=== PATIENT | male | born 1935 | race Caucasian/White ===

== ENCOUNTER 2016-11-20 12:34 | Inpatient (IN) | payer MEDICARE, BC ==
[2016-11-20] VITALS (15 sets, daily range): BP systolic 132–226; BP diastolic 62–93; PULSE 54–72; RESP 16–18; TEMP 96.9–99; O2SAT 95–98
[~2016-11-20] VITALS: Ht 175.3 cm; Wt 98.2 kg
[~2016-11-20 12:34] MED LIST: AMOX250C PO; BO60R PR; DETR2CAP; LORT5TAB PO; LOSA25TA31 PO
[2016-11-20] MEDS ORDERED: SODIUM CHLOR 0.9% 1000 ML INJ 1,000 ML IV ONE (12:43)
[2016-11-20 12:51] LABS: I-STAT POTASSIUM 4.4 MMOL/L (3.5-4.9); I-STAT SODIUM 141 MMOL/L (138-146)
--- NOTE | 2016-11-20 12:53 | RADRPT ---
EXAM DATE/TIME: 11/20/2016 12:46 [facility] COMPARISON: No previous studies available for comparison. INDICATIONS : Stroke alert; Left sided weakness; left facial droop, slurred speech. RADIATION DOSE: 36.38 CTDIvol (mGy) This report was called by Dr. Watkins at 1248. MEDICAL HISTORY : Hypertension. SURGICAL HISTORY : Non-responsive. ENCOUNTER: Initial ACUITY: 1 day PAIN SCALE: 0/10 LOCATION: cranial TECHNIQUE: Multiple contiguous axial images were obtained of the head. Using automated exposure control and adj ustment of the mA and/or kV according to patient size, radiation dose was kept as low as reasonably a chievable to obtain optimal diagnostic quality images. DICOM format image data is available electro nically for review and comparison. FINDINGS: CEREBRUM: Moderate atrophy with small parafalcine subdural hematoma. There is no parenchymal hemorrhage. POSTERIOR FOSSA: The cerebellum and brainstem are intact. The 4th ventricle is midline. The cerebellopontine angle i s unremarkable. EXTRACRANIAL: The visualized portion of the orbits is intact. SKULL: The calvaria is intact. No evidence of skull fracture. CONCLUSION: Small parafalcine subdural hematoma without parenchymal hemorrhage. Germán Watkins MD FACR on November 20, 2016 at 12:49 Board Certified Radiologist. This report was verified electronically.
[2016-11-20 12:54] LABS: AUTOMATED NEUTROPHIL # 9.5 TH/MM3 (1.8-7.7); BASOPHIL # 0.1 TH/MM3 (0-0.2); BASOPHIL % 0.7 % (0.0-2.0); EOSINOPHIL # 0.3 TH/MM3 (0-0.4); EOSINOPHIL % 2.1 % (0.0-4.0); HEMATOCRIT 43.6 % (39.0-51.0); LYMPH % 22.8 % (9.0-44.0); LYMPHOCYTE # 3.2 TH/MM3 (1.0-4.8); MEAN CELL VOLUME 88.4 FL (80.0-100.0); MEAN CORPUSCULAR HEMOGLOBIN 29.2 PG (27.0-34.0); MONO % 7.3 % (0.0-8.0); NEUT % 67.1 % (16.0-70.0); PLATELET COUNT 405 TH/MM3 (150-450); RED BLOOD COUNT 4.93 MIL/MM3 (4.50-5.90); RED CELL DISTRIBUTION WIDTH 14.9 % (11.6-17.2); WHITE BLOOD COUNT 14.1 TH/MM3 (4.0-11.0)
[2016-11-20 12:55] LABS: HEMO FLAGS AUTO DIFF
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
[2016-11-20] MEDS ORDERED: IOHEXOL 350 MG/ML 10 ML VIAL (for RAD DIAG) IVCONTRAST ONE (13:00)
[2016-11-20 13:08] LABS: APTT (PATIENT) 25.2 SEC (24.3-30.1); INTERNATIONAL NORMALIZED RATIO 0.9 RATIO
[2016-11-20] MEDS ORDERED: niCARdipine INJ 25 MG in SODIUM CHLOR 0.9% 250 ML INJ 250 ML IV ONE (13:15)
--- NOTE | 2016-11-20 13:19 | RADRPT ---
EXAM DATE/TIME: 11/20/2016 13:07 [facility] COMPARISON: CHEST SINGLE AP, December 26, 2012, 9:21. INDICATIONS : Short of breath. MEDICAL HISTORY : Carcinoma, prostatic. SURGICAL HISTORY : None. ENCOUNTER: Initial ACUITY: 1 day PAIN SCORE: 0/10 LOCATION: Bilateral chest FINDINGS: A single view of the chest demonstrates the lungs to be symmetrically aerated without evidence of mas s, infiltrate or effusion. The cardiomediastinal contours are unremarkable. Osseous structures are intact. CONCLUSION: No acute disease. Germán Watkins MD FACR on November 20, 2016 at 13:17 Board Certified Radiologist. This report was verified electronically.
[2016-11-20 13:23] LABS: SCAN/DIFF AUTO DIFF CONFIRMED
[2016-11-20 13:25] LABS: CREATINE KINASE 62 U/L (39-308)
[2016-11-20] MEDS ORDERED: POTASSIUM PHOSPHATE MONOBASIC 500 MG TAB PO/TUBE PRN (13:30)
[2016-11-20] MEDS ORDERED: MAGNESIUM OXIDE 400 MG TAB PO PRN (13:30)
[2016-11-20] MEDS ORDERED: POTASSIUM CHLOR 20 MEQ PREMIX 100 ML IV PRN ×2 (13:30)
[2016-11-20] MEDS ORDERED: SODIUM PHOSPHATE INJ 30 MMOL in SODIUM CHLOR 0.9% 250 ML INJ 240 ML IV PRN (13:30)
[2016-11-20] MEDS ORDERED: MISCELLANEOUS NURSING INFORMATION XX SCH (13:30)
[2016-11-20] MEDS ORDERED: POTASSIUM CHLOR 40 MEQ PREMIX 100 ML IV PRN ×2 (13:30)
[2016-11-20] MEDS ORDERED: MAGNESIUM SULFATE INJ 4 GM in SODIUM CHLORIDE 0.9% INJ 92 ML IV PRN (13:30)
[2016-11-20] MEDS ORDERED: RESP: ALBUTEROL 2.5 MG/IPRATROPIUM 0.5 MG NEB (PRN) INH (13:30)
[2016-11-20] MEDS ORDERED: ONDANSETRON HCL 4 MG/2 ML VIAL IV PRN (13:30)
[2016-11-20] MEDS ORDERED: POTASSIUM PHOSPHATE MONOBASIC 500 MG TAB PO PRN (13:30)
[2016-11-20] MEDS ORDERED: CHLORHEXIDINE GLUCONATE 2 % 1 PACK (2 CLOTHS) TOP PRN (13:30)
[2016-11-20] MEDS ORDERED: DEXTROSE 50% IN WATER 50 ML VIAL(D50) IV PUSH PRN (13:30)
[2016-11-20] MEDS ORDERED: MAGNESIUM SULFATE INJ 2 GM in SODIUM CHLORIDE 0.9% INJ 96 ML IV PRN (13:30)
[2016-11-20] MEDS ORDERED: POTASSIUM PHOSPHATE INJ 30 MMOL in SODIUM CHLOR 0.9% 250 ML INJ 250 ML IV PRN (13:30)
--- NOTE | 2016-11-20 13:47 | RADRPT ---
EXAM DATE/TIME: 11/20/2016 13:23 [facility] COMPARISON: No previous studies available for comparison. INDICATIONS : Stroke alert, pt fell, left arm weakness, facial droop, slurred speech IV CONTRAST: 75 cc Omnipaque 350 (iohexol) IV ; Cumulative dose for multiple exams. RADIATION DOSE: 27.84 CTDIvol (mGy) ; Combined studies MEDICAL HISTORY : Cerebrovascular disease. Carcinoma, prostate. Radiation therapy SURGICAL HISTORY : None. ENCOUNTER: Initial ACUITY: 1 day PAIN SCALE: Non-responsive LOCATION: cranial TECHNIQUE: Volumetric scanning was performed using a multi-row detector CT scanner. The data was post processed with a variety of visualization algorithms including full volume maximum intensity projection, multi -planar sliding thin slab reformation, curved planar reformation, and surface rendering techniques. Using automated exposure control and adjustment of the mA and/or kV according to patient size, radiat ion dose was kept as low as reasonably achievable to obtain optimal diagnostic quality images. DICO M format image data is available electronically for review and comparison. FINDINGS: There is visualization of the A-1 segment on the left. Bascular artery is patent. There is no evidence for aneurysm or major branch vessel occlusion. CONCLUSION: Mild atherosclerotic vascular disease. Perfusion looks better on the right than the left. Germán Watkins MD FACR on November 20, 2016 at 13:43 Board Certified Radiologist. This report was verified electronically.
[2016-11-20 14:16] LABS: BLOOD, URINE MOD (NEG); GLUCOSE,URINE NEG (NEG); KETONE, URINE NEG (NEG); MUCUS URINE FEW /lpf (OCC); NITRITE,URINE NEG (NEG); PH, URINE 5.5 (5.0-8.5); SQUAMOUS EPITHELIAL CELL URINE <1 /hpf (0-5); URINE COLOR LIGHT-YELLOW (YELLW/STRAW)
--- NOTE | 2016-11-20 14:49 | RADRPT ---
EXAM DATE/TIME: 11/20/2016 13:23 [facility] COMPARISON: No previous studies available for comparison. INDICATIONS : Stroke alert, fall, left arm weakness, slurred speech, facial droop. IV CONTRAST: 75 cc Omnipaque 350 (iohexol) IV ; Cumulative dose for multiple exams. RADIATION DOSE: 27.84 CTDIvol (mGy) ; Combined studies MEDICAL HISTORY : Cerebrovascular disease. Carcinoma, prostate. Radiation therapy. SURGICAL HISTORY : None. ENCOUNTER: Initial ACUITY: 1 day PAIN SCALE: Non-responsive LOCATION: neck Elevated flow velocities and ICA/CCA ratios have been found to correlate with increased degrees of vessel stenosis, calculated as percentage of diameter relative to a normal segment of distal ICA/CCA. TECHNIQUE: Volumetric scanning was performed using a multirow detector CT scanner. The data was post processed with a variety of visualization algorithms including full-volume maximum intensity projection, multip lanar sliding thin-slab reformation, curved-planar reformation, and surface-rendering techniques. Us ing automated exposure control and adjustment of the mA and/or kV according to patient size, radiatio n dose was kept as low as reasonably achievable to obtain optimal diagnostic quality images. DICOM f ormat image data is available electronically for review and comparison. FINDINGS: AORTIC ARCH: There is a three-vessel origin of the great vessels from the aorta. No evidence of ostial narrowing. RIGHT CAROTID: The common carotid artery is intact. The carotid bulb has a normal configuration without ulceration o r narrowing. The internal carotid artery lumen is smooth without stenosis. The external carotid jaziel ry is intact. LEFT CAROTID: The common carotid artery is intact. The carotid bulb has a normal configuration without ulceration or narrowing. The internal carotid artery lumen is smooth without stenosis. The external carotid ar diane is intact. VERTEBRALS: Both vertebrals are small. CONCLUSION: Negative for carotid stenosis. Germán Watkins MD FACR on November 20, 2016 at 14:46 Board Certified Radiologist. This report was verified electronically.
--- NOTE | 2016-11-20 14:54 | HHI.HP ---
HPI Service Critical Care Medicine Primary Care Physician Bird Carlin M.D. Admission Diagnosis SUBDURAL HEMATOMA Diagnosis: Chief Complaint: syncope and headache Travel History International Travel<30 Days: No Contact w/Intl Traveler <30 Da: No Traveled to Known Affected Are: No History of Present Illness This is a 81yM with history of multiple prior CVAs and dementia, and on ASA and Plavix for his prior CVAs who presents after he syncopized and fell while [place] the [employer]. Due to his dementia, he is a poor historian, but his is with him. She reports that he has been in his usual state of health and suddenly passed out, fell out of his motorized wheelchair and hit the back of his head. He immediately regained consciousness, and she felt that he was weak on his left side with slurred speech, so he was brought emergently to the ER. In the ER, he did not have any apparent weakness. CT head demonstrated very small parafalcine subdural hematoma. The patient complains of headache only, denies any other associated symptoms. Review of Systems ROS Limitations: Clinical Condition, Poor Historian Constitutional: DENIES: Fever, Chills Respiratory: DENIES: Cough, Wheezing, Sputum production, Shortness of breath Cardiovascular: COMPLAINS OF: Syncope, DENIES: Chest pain, Palpitations, Dyspnea on Exertion, Lower Extremity Edema Gastrointestinal: DENIES: Abdominal pain, Constipation, Diarrhea, Nausea, Vomiting Genitourinary: DENIES: Urinary incontinence Neurologic: COMPLAINS OF: Headache, DENIES: Localized weakness, Seizures, Speech Problems ROS limited by his dementia. however, limited ROS negative unless otherwise noted. Past Family Social History Allergies: Coded Allergies: No Known Allergies (Verified , 12/26/12) Past Medical History Prostate cancer CVA in 2010 HTN Radiation therapy Past Surgical History Prostate surgery in 2006 Reported Medications Lortab 5/500 (Acetaminophen/Hydrocodone Bitart) 5 Mg/500 Mg Tab 1-2 Tab PO Q6HPRN FOR PAIN Amoxil (Amoxicillin) 250 Mg Cap 250 Mg PO TID 5 Days B & O 16-A Supprette (Belladonna Alkaloids/Opium) 60 Mg Sup 60 Mg ME Q6 PRN Detrol La (Tolterodine Tartrate) 2 Mg Cap Cozaar (Losartan Potassium) 25 Mg Tab 25 Mg PO DAILY ASA, unknown dose, daily Plavix 75mg po daily Active Ordered Medications See VERO Family History Reviewed and found to be noncontributory to his acute illness. Social History denied tob, etoh. Physical Exam Vital Signs Vital Signs Date Time Temp Pulse Resp B/P (MAP) Pulse Ox O2 Delivery O2 Flow Rate FiO2 11/20/16 14:36 61 18 132/62 (85) 98 Nasal Cannula 2.00 11/20/16 14:16 62 18 139/62 (87) 97 Room Air 11/20/16 13:57 68 18 145/66 (92) 97 Nasal Cannula 2.00 11/20/16 13:41 72 18 160/70 (100) 98 Nasal Cannula 2.00 11/20/16 13:26 69 18 97 Room Air 11/20/16 13:15 63 18 159/74 (102) 98 Nasal Cannula 2.00 11/20/16 13:10 64 188/83 11/20/16 13:04 68 18 188/83 (118) 98 Nasal Cannula 2.00 11/20/16 13:01 18 98 Nasal Cannula 2.00 11/20/16 13:01 97 Nasal Cannula 2.00 11/20/16 12:40 99.0 67 18 226/93 (137) 97 Nasal Cannula 2.00 Physical Exam gen: elderly male, lying in bed, distress due to headache heent: perrl. normocephalic. atraumatic. mucous membranes moist neck: no jvd. trachea midline chest: equal chest rise. nc o2 cv: normal rate, regular rhythm. sinus by tele abd: soft, nontender, nondistended, no guarding extr: no peripheral edema. 2+ distal pulses neuro: RASS 0. oriented x 3. at times has some word finding difficulties, but this is baseline per his . LEA 5/5 in all extremities. sensation grossly intact. CN II - 12 grossly intact. follows commands. Laboratory Laboratory Tests Test 11/20/16 12:39 11/20/16 13:40 White Blood Count 14.1 Red Blood Count 4.93 Hemoglobin 14.4 Bedside Hemoglobin 15.6 Hematocrit 43.6 Bedside Hematocrit 46.0 Mean Corpuscular Volume 88.4 Mean Corpuscular Hemoglobin 29.2 Mean Corpuscular Hemoglobin Concent 33.0 Red Cell Distribution Width 14.9 Platelet Count 405 Mean Platelet Volume 7.1 Neutrophils (%) (Auto) 67.1 Lymphocytes (%) (Auto) 22.8 Monocytes (%) (Auto) 7.3 Eosinophils (%) (Auto) 2.1 Basophils (%) (Auto) 0.7 Neutrophils # (Auto) 9.5 Lymphocytes # (Auto) 3.2 Monocytes # (Auto) 1.0 Eosinophils # (Auto) 0.3 Basophils # (Auto) 0.1 CBC Comment AUTO DIFF Differential Comment AUTO DIFF CONFIRMED Prothrombin Time 10.0 Prothromb Time International Ratio 0.9 Activated Partial Thromboplast Time 25.2 Fibrinogen 514 Bedside Sodium 141 Bedside Potassium 4.4 Bedside Chloride 106 Bedside Blood Urea Nitrogen 23 Bedside Creatinine 1.3 Bedside Glucose 94 Total Creatine Kinase 62 Troponin I LESS THAN 0.02 Urine Color LIGHT-YELLOW Urine Turbidity CLEAR Urine pH 5.5 Urine Specific [place] 1.022 Urine Protein NEG Urine Glucose (UA) NEG Urine Ketones NEG Urine Occult Blood MOD Urine Nitrite NEG Urine Bilirubin NEG Urine Urobilinogen LESS THAN 2.0 Urine Leukocyte Esterase MOD Urine RBC 41 Urine WBC 12 Urine Squamous Epithelial Cells <1 Urine Mucus FEW Urine Yeast (Budding) OCC Urine Opiates Screen NEG Urine Barbiturates Screen NEG Urine Amphetamines Screen NEG Urine Benzodiazepines Screen NEG Urine Cocaine Screen NEG Urine Cannabinoids Screen NEG Result Diagram: 11/20/16 1239 Imaging Last Impressions Head CTA 11/20/16 1243 Signed Impressions: Service Date/Time: Sunday, November 20, 2016 13:23 - CONCLUSION: Mild atherosclerotic vascular disease. Perfusion looks better on the right than the left. Germán Watkins MD FACR Head CT 11/20/16 0000 Signed Impressions: Service Date/Time: Sunday, November 20, 2016 12:46 - CONCLUSION: Small parafalcine subdural hematoma without parenchymal hemorrhage. Germán Watkins MD FACR Chest X-Ray 11/20/16 0000 Signed Impressions: Service Date/Time: Sunday, November 20, 2016 13:07 - CONCLUSION: No acute disease. Germán Watkins MD FACR Caprini VTE Risk Assessment Caprini VTE Risk Assessment: Mod/High Risk (score >= 2) VTE Pharm Contraindication: Intracranial lesions Caprini Risk Assessment Model Point Value = 1 Point Value = 2 Point Value = 3 Point Value = 5 Age 41-60 Minor surgery BMI > 25 kg/m2 Swollen legs Varicose veins or History of unexplained or recurrent spontaneous Oral contraceptives or hormone replacement Sepsis (< 1 month) Serious lung disease, including pneumonia (< 1 month) Abnormal pulmonary function Acute myocardial infarction Congestive heart failure (< 1 month) History of inflammatory bowel disease Medical patient at bed rest Age 61-74 Arthroscopic surgery Major open surgery (> 45 min) Laparoscopic surgery (> 45 min) Malignancy Confined to bed (> 72 hours) Immobilizing plaster cast Central venous access Age >= 75 History of VTE Family history of VTE Factor V Leiden Prothrombin 44691M Lupus anticoagulant Anticardiolipin antibodies Elevated serum homocysteine Heparin-induced thrombocytopenia Other congenital or acquired thrombophilia Stroke (< 1 month) Elective arthroplasty Hip, pelvis, or leg fracture Acute spinal cord injury (< 1 month) Prophylaxis Regimen Total Risk Factor Score Risk Level Prophylaxis Regimen 0-1 Low Early ambulation 2 Moderate Order ONE of the following: *Sequential Compression Device (SCD) *Heparin 5000 units SQ BID 3-4 Higher Order ONE of the following medications: *Heparin 5000 units SQ TID *Enoxaparin/Lovenox 40 mg SQ daily (WT < 150 kg, CrCl > 30 mL/min) *Enoxaparin/Lovenox 30 mg SQ daily (WT < 150 kg, CrCl > 10-29 mL/min) *Enoxaparin/Lovenox 30 mg SQ BID (WT < 150 kg, CrCl > 30 mL/min) AND/OR *Sequential Compression Device (SCD) 5 or more Highest Order ONE of the following medications: *Heparin 5000 units SQ TID (Preferred with Epidurals) *Enoxaparin/Lovenox 40 mg SQ daily (WT < 150 kg, CrCl > 30 mL/min) *Enoxaparin/Lovenox 30 mg SQ daily (WT < 150 kg, CrCl > 10-29 mL/min) *Enoxaparin/Lovenox 30 mg SQ BID (WT < 150 kg, CrCl > 30 mL/min) AND *Sequential Compression Device (SCD) Assessment and Plan Assessment and Plan Assessment: 81yM with history of multiple prior CVAs and dementia presents after syncopal episode with fall sustaining small Subdural hematoma. Admit to ICU for close observation and repeat head CT in AM. unlikely to benefit from platelet transfusion given small size of SDH and certainly risks associated with transfusion. will hold ASA and plavix given head bleed. Parafalcine Subdural Hematoma - frequent neuro checks - no anticoagulation - NS @ 84cc/hr - hold ASA, Plavix - neurosurgery consult: Dr. Stone - repeat CT head in AM Headache - tylenol prn Syncope - previously worked up per at [facility] - will keep on telemetry - repeat 2d echo Nursing bedside swallow eval and advance diet SCDs, pepcid. no pharmacologic dvt prophylaxis given head bleed Admit to ICU for close observation. Code Status After a full discussion with the patient and , they both elect to make the patient DNR, as both feel he would not want aggressive measures should he clinically decline. Discussed Condition With at bedside, ER physician, ER bedside RN. Bandar Tadeo MD Nov 20, 2016 14:54
[2016-11-20] MEDS: ACETAMINOPHEN 325 MG TAB PO PRN (15:17)
--- NOTE | 2016-11-20 17:35 | PD.CONS ---
History of Present Illness Service Neurosurgery Consult Requested By Tank Welder-Dr. Tadeo Reason for Consult Traumatic brain injury Primary Care Physician Bird Carlin M.D. Diagnoses: History of Present Illness 81-year-old male was reportedly walking at the [employer] with his daughter when the walker that he was using it a small rock and collapsed. The patient fell with at least brief loss of consciousness. No seizure activity reported. The patient's family states that he usually has problems with diminished speech and gait difficulty, but is somewhat less alert with decreased fluency of his speech compared to baseline. The patient does not complain of any nausea or vomiting. He does complain of a mild diffuse headache and diffuse neck pain which is new. No complaining of back pain. No complaint of pain and weakness or numbness in the extremities. The patient has had problems with ambulation for quite some time, and has fallen a few times in the past few weeks. He just completed a course of 6 weeks physical therapy as an outpatient. He does have problems with his knees, and underwent a knee injection per Dr. Ian Garg last week. The patient also has a history of prostate cancer, status post extensive radiation treatments with loss of bladder control. He self catheterizes. He underwent biopsy of a renal lesion last week, by , with pathology results pending. Review of Systems Constitutional: COMPLAINS OF: Fatigue, DENIES: Fever, Dizziness Eyes: DENIES: Blurred vision, Diplopia Ears, nose, mouth, throat: DENIES: Vertigo Respiratory: DENIES: Shortness of breath Cardiovascular: DENIES: Chest pain, Palpitations Gastrointestinal: COMPLAINS OF: Nausea, DENIES: Vomiting Genitourinary: COMPLAINS OF: Urinary incontinence Musculoskeletal: COMPLAINS OF: Joint pain, DENIES: Back pain, Neck pain Hematologic/lymphatic: DENIES: Bruising Neurologic: COMPLAINS OF: Abnormal gait, Headache, Localized weakness Psychiatric: DENIES: Confusion Past Family Social History Allergies: Coded Allergies: No Known Allergies (Verified , 12/26/12) Past Medical History Multiple CVAs/TIAs Prostate cancer Hypertension Recent diagnosis renal lesion-biopsy pathology pending Past Surgical History Apparent TURP Renal biopsy last week Knee injection last week Reported Medications He takes blood pressure medicine-questionable lisinopril Family History Mother with diabetes and cardiac disease, brother with COPD, another brother with cardiac disease Social History No cigarette use. No history of significant alcohol use Lives at home Physical Exam Vital Signs Vital Signs Date Time Temp Pulse Resp B/P (MAP) Pulse Ox O2 Delivery O2 Flow Rate FiO2 11/20/16 14:36 61 18 132/62 (85) 98 Nasal Cannula 2.00 11/20/16 14:16 62 18 139/62 (87) 97 Room Air 11/20/16 13:57 68 18 145/66 (92) 97 Nasal Cannula 2.00 11/20/16 13:41 72 18 160/70 (100) 98 Nasal Cannula 2.00 11/20/16 13:26 69 18 97 Room Air 11/20/16 13:15 63 18 159/74 (102) 98 Nasal Cannula 2.00 11/20/16 13:10 64 188/83 11/20/16 13:04 68 18 188/83 (118) 98 Nasal Cannula 2.00 11/20/16 13:01 18 98 Nasal Cannula 2.00 11/20/16 13:01 97 Nasal Cannula 2.00 11/20/16 12:40 99.0 67 18 226/93 (137) 97 Nasal Cannula 2.00 Physical Exam GENERAL: This is a well-nourished, well-developed patient, no apparent distress. SKIN: No abrasions, contusion, rash noted. Skin warm and dry. HEAD: Atraumatic. Normocephalic. No temporal or scalp tenderness. EYES: Sclerae are clear and nonicteric ENT: No facial edema or ecchymosis. No periorbital edema. No CSF otorrhea or rhinorrhea. No palpable facial fracture or deformity. NECK: Trachea midline. No cervical spine tenderness. CARDIOVASCULAR: Regular rate and rhythm without murmurs, gallops, or rubs. RESPIRATORY: Clear to auscultation. Breath sounds equal bilaterally. No wheezes , rales, or rhonchi. GASTROINTESTINAL: Abdomen soft, non-tender, nondistended. No hepato-splenomegaly , or palpable masses. No guarding. MUSCULOSKELETAL: Extremities without cyanosis, or edema. No joint tenderness, or edema noted. No calf tenderness. Dorsalis pedis pulses 2+ bilateral NEUROLOGICAL: Awake and alert He knows that he is in the hospital. Does not know the date Speech is moderately slowed but clear Says only a few words in response to questions. Follow simple commands well Answers questions appropriately Diminished judgment and insight Recent and remote memory significantly impaired No evidence of anxiety or depression Pupils are equal and reactive to accommodation. Extra-ocular movements, visual carbajal to confrontation, facial sensorimotor, tongue, palate, sternocleidomastoid testing, hearing to finger rub testing, and bilateral shoulder shrug are all intact. Sensation is intact to light touch in all extremities Strength normal major flexion and extension groups all extremities John's absent bilaterally No ankle clonus Plantar responses absent bilateral Fine motor movements intact upper extremities Laboratory Laboratory Tests Test 11/20/16 12:39 11/20/16 13:40 White Blood Count 14.1 Red Blood Count 4.93 Hemoglobin 14.4 Bedside Hemoglobin 15.6 Hematocrit 43.6 Bedside Hematocrit 46.0 Mean Corpuscular Volume 88.4 Mean Corpuscular Hemoglobin 29.2 Mean Corpuscular Hemoglobin Concent 33.0 Red Cell Distribution Width 14.9 Platelet Count 405 Mean Platelet Volume 7.1 Neutrophils (%) (Auto) 67.1 Lymphocytes (%) (Auto) 22.8 Monocytes (%) (Auto) 7.3 Eosinophils (%) (Auto) 2.1 Basophils (%) (Auto) 0.7 Neutrophils # (Auto) 9.5 Lymphocytes # (Auto) 3.2 Monocytes # (Auto) 1.0 Eosinophils # (Auto) 0.3 Basophils # (Auto) 0.1 CBC Comment AUTO DIFF Differential Comment AUTO DIFF CONFIRMED Prothrombin Time 10.0 Prothromb Time International Ratio 0.9 Activated Partial Thromboplast Time 25.2 Fibrinogen 514 Bedside Sodium 141 Bedside Potassium 4.4 Bedside Chloride 106 Bedside Blood Urea Nitrogen 23 Bedside Creatinine 1.3 Bedside Glucose 94 Total Creatine Kinase 62 Troponin I LESS THAN 0.02 Urine Color LIGHT-YELLOW Urine Turbidity CLEAR Urine pH 5.5 Urine Specific Hamilton 1.022 Urine Protein NEG Urine Glucose (UA) NEG Urine Ketones NEG Urine Occult Blood MOD Urine Nitrite NEG Urine Bilirubin NEG Urine Urobilinogen LESS THAN 2.0 Urine Leukocyte Esterase MOD Urine RBC 41 Urine WBC 12 Urine Squamous Epithelial Cells <1 Urine Mucus FEW Urine Yeast (Budding) OCC Urine Opiates Screen NEG Urine Barbiturates Screen NEG Urine Amphetamines Screen NEG Urine Benzodiazepines Screen NEG Urine Cocaine Screen NEG Urine Cannabinoids Screen NEG Result Diagram: 11/20/16 1239 Imaging 11/20/16 CT scan head images reviewed by the undersigned. Relatively thin para pulsing subdural hematoma without significant mass effect. No definite proximal hemorrhage or contusion. Neck CTA 11/20/16 1243 Signed Impressions: Service Date/Time: Sunday, November 20, 2016 13:23 - CONCLUSION: Negative for carotid stenosis. Germán Watkins MD FACR Head CTA 11/20/16 1243 Signed Impressions: Service Date/Time: Sunday, November 20, 2016 13:23 - CONCLUSION: Mild atherosclerotic vascular disease. Perfusion looks better on the right than the left. Germán Watkins MD FACR Head CT 11/20/16 0000 Signed Impressions: Service Date/Time: Sunday, November 20, 2016 12:46 - CONCLUSION: Small parafalcine subdural hematoma without parenchymal hemorrhage. Germán Watkins MD FACR Chest X-Ray 11/20/16 0000 Signed Impressions: Service Date/Time: Sunday, November 20, 2016 13:07 - CONCLUSION: No acute disease. Germán Watkins MD FACR Assessment and Plan Assessment and Plan Impression: 1. Traumatic brain injury. Possible syncopal episode but appears to have fallen due to uneven ground, possible malfunctioning of walker. However he has had some increased gait difficulty and falling in the past few weeks. Patient himself attributes this to his knee problems. 2. Hypertension Recommendations: Findings were discussed with the patient and his family. He will continue neurologic checks and vital signs in the intensive surgical care unit Follow-up CT scan head in the a.m. Continue physical therapy Non- chemical DVT prophylaxis Advance diet as tolerated Jay Stone MD Nov 20, 2016 17:35
--- NOTE | 2016-11-20 19:44 | MB ---
cc: SHIN ELIZABETH M.D. DATE OF 1935, 81 years old DATE OF CONSULTATION 11/20/2016 REASON FOR CONSULTATION Initially a stroke alert. HISTORY OF THE PRESENT ILLNESS Apparently the patient is an 81-year-old man who was walking at the [employer] with his daughter when he was using his walker, hit a rock because they were in the gravel portion and he fell and hit his head with a brief loss of consciousness. No seizure activity. Then when he regained consciousness he had some speech issues, gait problems and was brought in as a stroke alert. The patient seems to be back to baseline. However, his CT showed a small parafalcine subdural hematoma. The patient was on aspirin and Plavix. He has had a few TIAs and strokes per his with also a history of bladder, prostate cancer with radiation. He recently had a renal biopsy, results are pending. ALLERGIES None reported. HISTORY 1. Multiple strokes, TIAs. 2. Prostate cancer. 3. Hypertension. 4. Renal biopsy, pathology pending. PAST SURGICAL HISTORY 1. Transurethral resection of prostate. 2. Renal biopsy last week. 3. Knee injection last week. FAMILY HISTORY Diabetes, heart disease, COPD. SOCIAL HISTORY Lives at home with his . PHYSICAL EXAMINATION VITAL SIGNS: On exam his vitals, heart rate 61, respiratory rate 18, blood pressure 132/62, sating at 98% on room air. NEUROLOGIC: He is awake and alert. He knows his , his age, his , he nearly guessed his anniversary correctly. He knows it is November. He thought it was later then the . He was 2016. Speech is otherwise fluent. Pupils reactive. Motor khan he may have minimal weakness in the left hand commercial counsel but no drift, no leg lag. No clonus. Toes are neutral. Cerebellar is intact. Gait is withheld. LABORATORY DATA White count 14.1. Chemistries unremarkable. Coag panel fibrinogen 514. Urine shows moderate leukocyte esterase. UDS is negative. IMAGING STUDIES As stated head CTA shows mild atherosclerotic disease, perfusion looks better on the right than on the left. Neck CTA negative for carotid disease. Head CT shows the small parafalcine subdural hematoma without any apparent parenchymal hemorrhage. IMPRESSION An 81-year-old man with a traumatic brain injury from a fall with a small parafalcine subdural hematoma. RECOMMENDATIONS Straight blood pressure control. Keep him off of his aspirin and Plavix. We will follow up a CT in the morning as per Dr. Stone's recommendations. SCDs for DVT prophylaxis. Diet advance as tolerated. Physical therapy and if stable hopefully discharge in the next 24-48 hours depending on course. MD SAMSON Martínez/LIANE /5:42 PM /7:22 PM
[2016-11-20] MEDS: FAMOTIDINE 20 MG TAB PO SCH (20:54)
[2016-11-20] MEDS: DOCUSATE SODIUM 50 MG/SENNA 8.6 MG TAB PO SCH (20:55)
[2016-11-20] MEDS: INSULIN NovoLIN REGULAR SUPPLEMENTAL SCALE SQ SCH (21:00)
[2016-11-20] MEDS: hydrALAZINE HCL 20 MG/ML VIAL IV PUSH PRN (21:09)
[2016-11-20] MEDS: SODIUM CHLOR 0.9% 1000 ML INJ 1,000 ML IV SCH (21:09)
[2016-11-20] MEDS ORDERED: amLODIPine BESYLATE 5 MG TAB PO ONE (22:15)
[2016-11-21] VITALS (13 sets, daily range): BP systolic 130–165; BP diastolic 60–89; PULSE 56–75; RESP 12–18; TEMP 97.8–98.6; O2SAT 94–96
[2016-11-21] MEDS: hydrALAZINE HCL 20 MG/ML VIAL IV PUSH PRN ×3 (01:15→09:18)
[2016-11-21] MEDS: INSULIN NovoLIN REGULAR SUPPLEMENTAL SCALE SQ SCH ×5 (02:03→21:00)
[2016-11-21] MEDS: LABETALOL HCL 100 MG/20 ML VIAL IV PUSH PRN ×5 (03:43→09:50)
[2016-11-21] MEDS: CHLORHEXIDINE GLUCONATE 2 % 1 PACK (2 CLOTHS) TOP SCH (03:52)
[2016-11-21 07:13] LABS: MEAN CELL VOLUME 89.4 FL (80.0-100.0); MEAN CORPUSCULAR HEMOGLOBIN 28.6 PG (27.0-34.0); PLATELET COUNT 351 TH/MM3 (150-450); REVIEW FLAG FINAL; WHITE BLOOD COUNT 14.9 TH/MM3 (4.0-11.0)
[2016-11-21 07:38] LABS: BICARBONATE 21.2 MEQ/L (21.0-32.0)
[2016-11-21 07:39] LABS: POTASSIUM 4.1 MEQ/L (3.5-5.1)
[2016-11-21] MEDS: SODIUM CHLOR 0.9% 1000 ML INJ 1,000 ML IV SCH ×2 (08:00→13:19)
[2016-11-21] MEDS: ACETAMINOPHEN 325 MG TAB PO PRN (08:44)
[2016-11-21] MEDS: DOCUSATE SODIUM 50 MG/SENNA 8.6 MG TAB PO SCH ×2 (08:44→21:00)
[2016-11-21] MEDS: FAMOTIDINE 20 MG TAB PO SCH ×2 (08:45→21:42)
[2016-11-21] MEDS ORDERED: amLODIPine BESYLATE 5 MG TAB PO SCH (09:00)
--- NOTE | 2016-11-21 09:29 | HHI.CCPN ---
Subjective Remarks/Hospital Course This is a 81yM with history of multiple prior CVAs and dementia, and on ASA and Plavix for his prior CVAs who presents after he syncopized and fell while at the [employer]. Due to his dementia, he is a poor historian, but his is with him. She reports that he has been in his usual state of health and suddenly passed out, fell out of his motorized wheelchair and hit the back of his head. He immediately regained consciousness, and she felt that he was weak on his left side with slurred speech, so he was brought emergently to the ER. In the ER, he did not have any apparent weakness. CT head demonstrated very small parafalcine subdural hematoma. The patient complains of headache only, denies any other associated symptoms. 11/21: Alert, cooperative today. CTA head and neck benign - no stenosis or aneurysm. Looks like simple SDH after fall. Objective Vital Signs Date Time Temp Pulse Resp B/P (MAP) Pulse Ox O2 Delivery O2 Flow Rate FiO2 11/21/16 06:00 63 11/21/16 04:00 97.9 14 149/66 (93) 94 11/20/16 14:36 Nasal Cannula 2.00 Intake and Output 11/21/16 11/21/16 11/22/16 08:00 16:00 00:00 Intake Total 843 ml Output Total 2000 ml Balance -1157 ml Result Diagram: 11/21/16 0555 11/21/16 0555 Imaging Last Impressions Head CTA 11/20/16 1243 Signed Impressions: Service Date/Time: Sunday, November 20, 2016 13:23 - CONCLUSION: Mild atherosclerotic vascular disease. Perfusion looks better on the right than the left. Germán Watkins MD FACR Head CT 11/20/16 0000 Signed Impressions: Service Date/Time: Sunday, November 20, 2016 12:46 - CONCLUSION: Small parafalcine subdural hematoma without parenchymal hemorrhage. Germán Watkins MD FACR Chest X-Ray 11/20/16 0000 Signed Impressions: Service Date/Time: Sunday, November 20, 2016 13:07 - CONCLUSION: No acute disease. Germán Watkins MD FACR Objective Remarks gen: elderly male, lying in bed, no distress heent: perrl. normocephalic. atraumatic. mucous membranes moist neck: no jvd. trachea midline. unobstructed chest: equal chest rise. nc o2. clear. cv: normal rate, regular rhythm. sinus by tele abd: soft, nontender, nondistended, no guarding extr: no peripheral edema. 2+ distal pulses neuro: RASS 0. oriented x 3. at times has some word finding difficulties, but this is baseline per his . LEA 5/5 in all extremities. sensation grossly intact. CN II - 12 grossly intact. follows commands. cooperative. A/P Assessment and Plan Assessment: 81yM with history of multiple prior CVAs and dementia presents after syncopal episode with fall sustaining small Subdural hematoma. Admit to ICU for close observation and repeat head CT in AM. unlikely to benefit from platelet transfusion given small size of SDH and certainly risks associated with transfusion. will hold ASA and plavix given head bleed. Parafalcine Subdural Hematoma - frequent neuro checks - no anticoagulation - NS @ 84cc/hr - hold ASA, Plavix - neurosurgery consult: Dr. Stone - repeat CT head in AM Headache - tylenol prn Syncope - previously worked up at [facility] - will keep on telemetry - repeat 2d echo Nursing bedside swallow eval and advance diet SCDs, pepcid. no pharmacologic dvt prophylaxis given head bleed Admit to ICU for close observation. If repeat CT no change, transfer to floor. Lit Cotton MD Nov 21, 2016 09:29
--- NOTE | 2016-11-21 11:57 | HHI.NSPN ---
(Corry Sims) Note Status Status: Progress Note (Corry Sims) Interval History Interval History 81-year-old male was reportedly walking at the [employer] with his daughter when the walker that he was using it a small rock and collapsed. The patient fell with at least brief loss of consciousness. No seizure activity reported. The patient's family states that he usually has problems with diminished speech and gait difficulty, but is somewhat less alert with decreased fluency of his speech compared to baseline. The patient does not complain of any nausea or vomiting. He does complain of a mild diffuse headache and diffuse neck pain which is new. No complaining of back pain. No complaint of pain and weakness or numbness in the extremities. The patient has had problems with ambulation for quite some time, and has fallen a few times in the past few weeks. He just completed a course of 6 weeks physical therapy as an outpatient. He does have problems with his knees, and underwent a knee injection per Dr. Ian Garg last week. The patient also has a history of prostate cancer, status post extensive radiation treatments with loss of bladder control. He self catheterizes. He underwent biopsy of a renal lesion last week, by , with pathology results pending. 11/21: c/o mild headaches, otherwise reports to be feeling better. denies focal weakness, nausea, vomiting or seizures. f/u CT Head today pending. (Corry Sims) Interval History 11/[address] As above[address] Follow up CT of the brain today (Elvis Cox MD) Labs, Micro, & Vital Signs Results Date Time Temp Pulse Resp B/P (MAP) Pulse Ox O2 Delivery O2 Flow Rate FiO2 11/21/16 10:00 65 11/21/16 08:00 98.4 58 15 153/89 (110) 96 11/21/16 08:00 95 11/21/16 08:00 58 11/21/16 07:00 96 Room Air 11/21/16 06:00 63 11/21/16 04:00 62 11/21/16 04:00 97.9 62 14 149/66 (93) 94 11/21/16 02:00 75 11/21/16 00:00 63 11/21/16 00:00 98.6 56 18 148/67 (94) 95 11/20/16 22:00 56 11/20/16 20:57 97 11/20/16 20:46 96 11/20/16 20:00 98.3 56 16 143/64 (90) 95 11/20/16 20:00 54 11/20/16 18:00 97.5 54 16 143/67 (92) 96 11/20/16 16:00 96.9 61 16 151/69 (96) 11/20/16 15:15 64 11/20/16 14:36 61 18 132/62 (85) 98 Nasal Cannula 2.00 11/20/16 14:16 62 18 139/62 (87) 97 Room Air 11/20/16 13:57 68 18 145/66 (92) 97 Nasal Cannula 2.00 11/20/16 13:41 72 18 160/70 (100) 98 Nasal Cannula 2.00 11/20/16 13:26 69 18 97 Room Air 11/20/16 13:15 63 18 159/74 (102) 98 Nasal Cannula 2.00 11/20/16 13:10 64 188/83 11/20/16 13:04 68 18 188/83 (118) 98 Nasal Cannula 2.00 11/20/16 13:01 18 98 Nasal Cannula 2.00 11/20/16 13:01 97 Nasal Cannula 2.00 11/20/16 12:40 99.0 67 18 226/93 (137) 97 Nasal Cannula 2.00 Constitutional Vital Signs Date Time Temp Pulse Resp B/P (MAP) Pulse Ox O2 Delivery O2 Flow Rate FiO2 11/21/16 10:00 65 11/21/16 08:00 98.4 58 15 153/89 (110) 96 11/21/16 08:00 95 11/21/16 08:00 58 11/21/16 07:00 96 Room Air 11/21/16 06:00 63 11/21/16 04:00 62 11/21/16 04:00 97.9 62 14 149/66 (93) 94 11/21/16 02:00 75 11/21/16 00:00 63 11/21/16 00:00 98.6 56 18 148/67 (94) 95 11/20/16 22:00 56 11/20/16 20:57 97 11/20/16 20:46 96 11/20/16 20:00 98.3 56 16 143/64 (90) 95 11/20/16 20:00 54 11/20/16 18:00 97.5 54 16 143/67 (92) 96 11/20/16 16:00 96.9 61 16 151/69 (96) 11/20/16 15:15 64 11/20/16 14:36 61 18 132/62 (85) 98 Nasal Cannula 2.00 11/20/16 14:16 62 18 139/62 (87) 97 Room Air 11/20/16 13:57 68 18 145/66 (92) 97 Nasal Cannula 2.00 11/20/16 13:41 72 18 160/70 (100) 98 Nasal Cannula 2.00 11/20/16 13:26 69 18 97 Room Air 11/20/16 13:15 63 18 159/74 (102) 98 Nasal Cannula 2.00 11/20/16 13:10 64 188/83 11/20/16 13:04 68 18 188/83 (118) 98 Nasal Cannula 2.00 11/20/16 13:01 18 98 Nasal Cannula 2.00 11/20/16 13:01 97 Nasal Cannula 2.00 11/20/16 12:40 99.0 67 18 226/93 (137) 97 Nasal Cannula 2.00 (Corry Sims) Review of Systems Constitutional: DENIES: Fever Eyes: DENIES: Diplopia Cardiovascular: DENIES: Chest pain Neurologic: COMPLAINS OF: Headache (mild), DENIES: Localized weakness (Corry Sims) Physical Exam Alert, oriented to name, place, and year. Follows commands well. Speech is fluent. CN: pupils 4 mm b/l. facial motor symmetric. Tongue midline. EOMs intact. Neck: soft, supple Motor: 5/5 to both upper and lower extremities Sensory: intact to light touch x 4 Cerebellar: intact finger to nose b/l Plantars flexors b/l Extremities: no edema or erythema (Corry Sims) Mr Bowie is alert, awake and oriented to time, place and person. Speech is fluent. Cranial nerve examination: pupils to be equal, round and reactive to light. Extra-ocular movements are intact. Facial motor and sensory function are normal and symmetrical. Gross hearing appears intact. Sternocleidomastoid and trapezius muscles are symmetrical. Other cranial nerves are intact. Neck is soft and supple with a good range of motion without pain. Muscle strength is normal in all muscle groups of both upper and lower extremities. Sensory examination is intact to light touch and pin prick in both the upper and lower extremities. Deep tendon reflexes are symmetrical in both upper and lower extremities. There is a bilateral plantar flexion response. Cerebellar examination is unremarkable, without deficits. (Elvis Cox MD) Medications Current Medications Current Medications Medications (Trade) Dose Ordered Sig/Keith Route PRN Reason Start Time Stop Time Status Last Admin Dose Admin Magnesium Oxide (Mag-Ox) 800 mg UNSCH PRN PO For Magnesium 1.2 - 1.6 mg/dL 11/20/16 13:30 Magnesium Sulfate 4 gm/Sodium Chloride 100 ml @ 50 mls/hr UNSCH PRN IV For Magnesium 0.9 - 1.1 mg/dL 11/20/16 13:30 Magnesium Sulfate 2 gm/Sodium Chloride 100 ml @ 50 mls/hr UNSCH PRN IV For Magnesium 1.2 - 1.6 mg/dL 11/20/16 13:30 Potassium Chloride 100 ml @ 50 mls/hr Q2H PRN IV For Potassium 2.8 - 3.2 mEq/L 11/20/16 13:30 Potassium Chloride 100 ml @ 50 mls/hr Q2H PRN IV For Potassium 3.3 - 3.5 mEq/L 11/20/16 13:30 Potassium Chloride 100 ml @ 50 mls/hr Q2H PRN IV For Potassium 2.8 - 3.2 mEq/L 11/20/16 13:30 Potassium Chloride 100 ml @ 25 mls/hr UNSCH PRN IV For Potassium 3.3 - 3.5 mEq/L 11/20/16 13:30 Potassium Phosphate (K-Phos) 2,000 mg Q4H PRN PO For Phosphorus < 2.5 mg/dL 11/20/16 13:30 Potassium Phosphate (K-Phos) 2,000 mg UNSCH PRN PO/TUBE SEE LABEL COMMENTS 11/20/16 13:30 Potassium Phosphate 30 mmol/ Sodium Chloride 260 ml @ 42 mls/hr UNSCH PRN IV SEE LABEL COMMENTS 11/20/16 13:30 Sodium Phosphate 30 mmol/Sodium Chloride 250 ml @ 42 mls/hr UNSCH PRN IV For Phosphorus < 2.5 mg/dL 11/20/16 13:30 Dextrose (D50w (Vial) Inj) 25 ml UNSCH PRN IV PUSH HYPOGLYCEMIA-SEE COMMENTS 11/20/16 13:30 Insulin Human Regular (NovoLIN R SUPPLEMENTAL SCALE) 1 ACHS AND 3AM SQ 11/20/16 16:00 Sodium Chloride 1,000 ml @ 84 mls/hr [id number] IV 11/20/16 13:29 11/21/16 08:00 Famotidine (Pepcid) 20 mg Q12HR PO 11/20/16 21:00 11/21/16 08:45 Ondansetron HCl (Zofran Inj) 4 mg Q6H PRN IV NAUSEA OR VOMITING 11/20/16 13:30 Albuterol/ Ipratropium (Duoneb Neb) 1 ampule Q2HR NEB PRN INH WHEEZING 11/20/16 13:30 Miscellaneous Information 1 Q361D XX 11/20/16 13:30 Chlorhexidine Gluconate (Chlorhexidine 2% Cloth) 3 pack Taper DAILY@04 TOP 11/21/16 04:00 11/17/17 03:59 11/21/16 03:52 Chlorhexidine Gluconate (Chlorhexidine 2% Cloth) 3 pack UNSCH PRN TOP HYGIENIC CARE 11/20/16 13:30 Senna/Docusate Sodium (Grace-Colace) 1 tab BID PO 11/20/16 21:00 11/21/16 08:44 Acetaminophen (Tylenol) 650 mg Q4H PRN PO pain 1-10 or fever 11/20/16 15:00 11/21/16 08:44 Hydralazine HCl (Apresoline Inj) 10 mg Q4H PRN IV PUSH SBP >140 11/20/16 20:45 11/21/16 09:18 Labetalol HCl (Trandate Inj) 10 mg Q6H PRN IV PUSH SBP >140 11/21/16 03:45 11/21/16 09:50 Amlodipine Besylate (Norvasc) 5 mg DAILY PO 11/21/16 09:00 11/21/16 08:45 (Corry Sims) Current Medications Current Medications Sodium Chloride 1,000 ml @ 70 mls/hr [id number] ONCE IV ; Start 11/20/16 at 12:43; Stop 11/20/16 at 13:52; Status DC Nicardipine HCl 25 mg/Sodium Chloride 260 ml @ 0 mls/hr TITRATE ONCE IV Last administered on 11/20/16t 13:10; Start 11/20/16 at 13:15; Stop 11/20/16 at 13:16; Status DC Magnesium Oxide (Mag-Ox) 800 mg UNSCH PRN PO For Magnesium 1.2 - 1.6 mg/dL; Start 11/20/16 at 13:30 Magnesium Sulfate 4 gm/Sodium Chloride 100 ml @ 50 mls/hr UNSCH PRN IV For Magnesium 0.9 - 1.1 mg/dL; Start 11/20/16 at 13:30 Magnesium Sulfate 2 gm/Sodium Chloride 100 ml @ 50 mls/hr UNSCH PRN IV For Magnesium 1.2 - 1.6 mg/dL; Start 11/20/16 at 13:30 Potassium Chloride 100 ml @ 50 mls/hr Q2H PRN IV For Potassium 2.8 - 3.2 mEq/L ; Start 11/20/16 at 13:30 Potassium Chloride 100 ml @ 50 mls/hr Q2H PRN IV For Potassium 3.3 - 3.5 mEq/L ; Start 11/20/16 at 13:30 Potassium Chloride 100 ml @ 50 mls/hr Q2H PRN IV For Potassium 2.8 - 3.2 mEq/L ; Start 11/20/16 at 13:30 Potassium Chloride 100 ml @ 25 mls/hr UNSCH PRN IV For Potassium 3.3 - 3.5 mEq /L; Start 11/20/16 at 13:30 Potassium Phosphate (K-Phos) 2,000 mg Q4H PRN PO For Phosphorus < 2.5 mg/dL; Start 11/20/16 at 13:30 Potassium Phosphate (K-Phos) 2,000 mg UNSCH PRN PO/TUBE SEE LABEL COMMENTS; Start 11/20/16 at 13:30 Potassium Phosphate 30 mmol/ Sodium Chloride 260 ml @ 42 mls/hr UNSCH PRN IV SEE LABEL COMMENTS; Start 11/20/16 at 13:30 Sodium Phosphate 30 mmol/Sodium Chloride 250 ml @ 42 mls/hr UNSCH PRN IV For Phosphorus < 2.5 mg/dL; Start 11/20/16 at 13:30 Dextrose (D50w (Vial) Inj) 25 ml UNSCH PRN IV PUSH HYPOGLYCEMIA-SEE COMMENTS; Start 11/20/16 at 13:30 Insulin Human Regular (NovoLIN R SUPPLEMENTAL SCALE) 1 ACHS AND 3AM SQ ; Start 11/20/16 at 16:00 Sodium Chloride 1,000 ml @ 84 mls/hr [id number] IV Last administered on 11/21/16 08:00; Start 11/20/16 at 13:29 Famotidine (Pepcid) 20 mg Q12HR PO Last administered on 11/21/16 08:45; Start 11/20/16 at 21:00 Ondansetron HCl (Zofran Inj) 4 mg Q6H PRN IV NAUSEA OR VOMITING; Start 11/20/16 at 13:30 Albuterol/ Ipratropium (Duoneb Neb) 1 ampule Q2HR NEB PRN INH WHEEZING; Start 11/20/16 at 13:30 Miscellaneous Information 1 Q361D XX ; Start 11/20/16 at 13:30 Chlorhexidine Gluconate (Chlorhexidine 2% Cloth) 3 pack Taper DAILY@04 TOP Last administered on 11/21/16 03:52; Start 11/21/16 at 04:00; Stop 11/17/17 at 03 :59 Chlorhexidine Gluconate (Chlorhexidine 2% Cloth) 3 pack UNSCH PRN TOP HYGIENIC CARE; Start 11/20/16 at 13:30 Senna/Docusate Sodium (Grace-Colace) 1 tab BID PO Last administered on 11/21/16 08:44; Start 11/20/16 at 21:00 Iohexol (Omnipaque 350 Inj) 75 ml STK-MED ONCE IVCONTRAST Last administered on 11/20/16 13:00; Start 11/20/16 at 13:00; Stop 11/20/16 at 13:41; Status DC Acetaminophen (Tylenol) 650 mg Q4H PRN PO pain 1-10 or fever Last administered on 11/21/16 08:44; Start 11/20/16 at 15:00 Hydralazine HCl (Apresoline Inj) 10 mg Q4H PRN IV PUSH SBP >140 Last administered on 11/21/16 09:18; Start 11/20/16 at 20:45 Amlodipine Besylate (Norvasc) 5 mg ONCE ONCE PO Last administered on 11/20/16 22:15; Start 11/20/16 at 22:15; Stop 11/20/16 at 22:16; Status DC Labetalol HCl (Trandate Inj) 10 mg Q6H PRN IV PUSH SBP >140 Last administered on 11/21/16 09:50; Start 11/21/16 at 03:45 Amlodipine Besylate (Norvasc) 5 mg DAILY PO Last administered on 11/21/16 08:45 ; Start 11/21/16 at 09:00 (Elvis Cox MD) Medical Decision Making MDM Remarks 81 y/o male 1. Traumatic brain injury. Possible syncopal episode but appears to have fallen due to uneven ground, possible malfunctioning of walker. CT Head on arrival with small parafalcine subdural hematoma. 2. Hypertension (Corry Sims) Plan Plan Remarks cont neuro checks in ISC f/u CT Head pending today, cont nonchemical dvt prophylaxis in view of acute ICH cont oral diet, advance as tolerated cont PT (Corry Sims) Attending Statement Continue neuro checks. parafalcine SDH. I reviewed his follow up CT of the brain today Syncope he has been previously worked up at [facility] keep on telemetry. Will repeat 2d echo Unable to give anticoagulation Pulmonary.. Continue aggressive pulmonary toilette, nasotracheal suction, and breathing treatments with nebulizers. Renal. monitor closely urine output, BUN and creatinine Endocrine. Monitor serial Acu checks and SSI as needed in detail ID monitor for signs of infection Protonix for stress ulcer prophylaxis Rashad hose and SCD's for DVT prophylaxis. The exam, history, and the medical decision-making described in the above note were completed with the assistance of the mid-level provider. I reviewed and agree with the findings presented. I attest that I had a [id number] encounter with the patient on the same day, and personally performed and documented my assessment and findings in the medical record. Discussedm with Dr Cotton (Elvis Cox MD) Corry Sims Nov 21, 2016 11:57 Elvis Cox MD Nov 21, 2016 13:18
--- NOTE | 2016-11-21 14:57 | RADRPT ---
EXAM DATE/TIME: 11/21/2016 14:38 [facility] COMPARISON: CT BRAIN W/O CONTRAST, November 20, 2016, 12:46. INDICATIONS : Follow up intracranial hemorrhage. RADIATION DOSE: 56.35 CTDIvol (mGy) MEDICAL HISTORY : Cerebrovascular disease. SURGICAL HISTORY : None. ENCOUNTER: Subsequent ACUITY: 3 days PAIN SCALE: 0/10 LOCATION: cranial TECHNIQUE: Multiple contiguous axial images were obtained of the head. Using automated exposure control and adj ustment of the mA and/or kV according to patient size, radiation dose was kept as low as reasonably a chievable to obtain optimal diagnostic quality images. DICOM format image data is available electro nically for review and comparison. FINDINGS: CEREBRUM: Parafalcine subdural remains stable in interval. There is mild central and cortical atrophy. POSTERIOR FOSSA: The cerebellum and brainstem are intact. The 4th ventricle is midline. The cerebellopontine angle i s unremarkable. EXTRACRANIAL: Minimal right maxillary sinus disease. SKULL: The calvaria is intact. No evidence of skull fracture. CONCLUSION: Stable noncontrast axial head CT small parafalcine subdural hematoma. Germán Watkins MD FACR on November 21, 2016 at 14:55 Board Certified Radiologist. This report was verified electronically.
[2016-11-21] MEDS: LISINOPRIL 5 MG TAB PO SCH (16:41)
--- NOTE | 2016-11-21 20:18 | EKG ---
Date Performed: 11/20/2016 Time Performed: 12:56:45 PTAGE: 81 years EKG: Sinus rhythm WITH FIRST DEGREE AV BLOCK MARKED LEFT AXIS DEVIATION ABNORMAL ECG PREVIOUS TRACING : 12/26/2012 22.39 DOCTOR: Jessica Schwab Interpretating Date/Time 11/21/2016 20:15:45
[2016-11-22] VITALS (12 sets, daily range): BP systolic 124–153; BP diastolic 63–73; PULSE 51–65; RESP 14–20; TEMP 98–99; O2SAT 94–95
[2016-11-22] MEDS: INSULIN NovoLIN REGULAR SUPPLEMENTAL SCALE SQ SCH ×5 (03:00→21:00)
[2016-11-22] MEDS: CHLORHEXIDINE GLUCONATE 2 % 1 PACK (2 CLOTHS) TOP SCH (04:00)
[2016-11-22 05:30] LABS: HEMATOCRIT 39.1 % (39.0-51.0); MEAN CELL VOLUME 88.8 FL (80.0-100.0); MEAN CORPUSCULAR HEMOGLOBIN 29.4 PG (27.0-34.0); MEAN CORPUSCULAR HGB CONC 33.2 % (32.0-36.0); PLATELET COUNT 307 TH/MM3 (150-450); RED CELL DISTRIBUTION WIDTH 14.7 % (11.6-17.2); REVIEW FLAG FINAL; WHITE BLOOD COUNT 12.7 TH/MM3 (4.0-11.0)
[2016-11-22 05:38] LABS: BICARBONATE 23.9 MEQ/L (21.0-32.0); POTASSIUM 4.3 MEQ/L (3.5-5.1)
[2016-11-22] MEDS: FAMOTIDINE 20 MG TAB PO SCH ×2 (09:08→22:26)
[2016-11-22] MEDS: DOCUSATE SODIUM 50 MG/SENNA 8.6 MG TAB PO SCH ×2 (09:08→20:55)
[2016-11-22] MEDS: amLODIPine BESYLATE 5 MG TAB PO SCH (09:08)
[2016-11-22] MEDS: LISINOPRIL 5 MG TAB PO SCH (09:09)
--- NOTE | 2016-11-22 11:38 | ECHRPT ---
Indication: CVA/TIA CONCLUSIONS The left ventricular systolic function is normal with an estimated ejection fraction in the range of 60-65%. Doppler parameters are consistent with impaired left ventricular relaxtion (grade 1 diastolic dysfun ction). There is trace tricuspid valve regurgitation. BP: 149 / 66 HR: 63 Rhythm: Atrial fibrillation MEASUREMENTS (Male / Female) Normal Values Technical Quality:Fair 2D ECHO LV Diastolic Diameter PLAX 4.1 cm 4.2 - 5.9 / 3.9 - 5.3 cm LV Systolic Diameter PLAX 2.7 cm IVS Diastolic Thickness 1.2 cm 0.6 - 1.0 / 0.6 - 0.9 cm LVPW Diastolic Thickness 1.2 cm 0.6 - 1.0 / 0.6 - 0.9 cm LV Relative Wall Thickness 0.6 RV Internal Dim ED PLAX 3.2 cm LVOT Diameter 2.1 cm LA Systolic Diameter LX 2.8 cm 3.0 - 4.0 / 2.7 - 3.8 cm LV Ejection Fraction MOD 4C 63.5 % LV Cardiac Index MOD 4C 1536.5 cm/minm LV Ejection Fraction 4C AL 64.4 % LV Cardiac Index 4C AL 1622.2 cm/minm M-MODE Aortic Root Diameter MM 3.2 cm AV Cusp Separation MM 2.1 cm DOPPLER AV Peak Velocity 166.0 cm/s AV Peak Gradient 11.0 mmHg LVOT Peak Velocity 118.0 cm/s LVOT Peak Gradient 5.6 mmHg AV Area Cont Eq pk 2.5 cm MV Area PHT 3.6 cm Mitral E Point Velocity 90.8 cm/s Mitral A Point Velocity 97.2 cm/s Mitral E to A Ratio 0.9 LV E' Lateral Velocity 9.8 cm/s Mitral E to LV E' Lateral Ratio 9.2 LV E' Septal Velocity 7.4 cm/s Mitral E to LV E' Septal Ratio 12.3 TR Peak Velocity 290.0 cm/s TR Peak Gradient 33.6 mmHg PV Peak Velocity 125.0 cm/s PV Peak Gradient 6.3 mmHg FINDINGS LEFT VENTRICLE The left ventricular systolic function is normal with an estimated ejection fraction in the range of 60-65%. Normal left ventricular size. Wall thickness is measured at the upper limits of normal. No regional wall motion abnormalities are present. Doppler parameters are consistent with impaired left ventricular relaxtion (grade 1 diastolic dysfun ction). RIGHT VENTRICLE Normal right ventricular size and systolic function. LEFT ATRIUM The left atrial size is normal. RIGHT ATRIUM The right atrial size is normal. ATRIAL SEPTUM The interatrial septum not well visualized. AORTA The aortic root and proximal ascending aorta are normal in size on limited imaging. MITRAL VALVE Structurally normal mitral valve. No mitral valve stenosis or regurgitation. AORTIC VALVE Trileaflet aortic valve. No aortic valve stenosis or regurgitation. TRICUSPID VALVE Structurally normal tricuspid valve. There is trace tricuspid valve regurgitation. The estimated pulmonary arterial pressure is 44 mmHg. PULMONARY VALVE The pulmonary valve is not well visualized. Trivial pulmonary valve regurgitation. VESSELS The inferior vena cava is normal in size. PERICARDIUM No pericardial effusion. Jeffery Bliss DO (Electronically Signed) Final Date:22 November 2016 11:37
--- NOTE | 2016-11-22 12:22 | HHI.NSPN ---
(Vic Preciado) History Chief Complaint: No complaints. (Vic Preciado) Interval History 11/20: 81-year-old male was reportedly walking at the [employer] with his daughter when the walker that he was using it a small rock and collapsed. The patient fell with at least brief loss of consciousness. No seizure activity reported. The patient's family states that he usually has problems with diminished speech and gait difficulty, but is somewhat less alert with decreased fluency of his speech compared to baseline. The patient does not complain of any nausea or vomiting. He does complain of a mild diffuse headache and diffuse neck pain which is new. No complaining of back pain. No complaint of pain and weakness or numbness in the extremities. The patient has had problems with ambulation for quite some time, and has fallen a few times in the past few weeks. He just completed a course of 6 weeks physical therapy as an outpatient. He does have problems with his knees, and underwent a knee injection per Dr. Ian Garg last week. The patient also has a history of prostate cancer, status post extensive radiation treatments with loss of bladder control. He self catheterizes. He underwent biopsy of a renal lesion last week, by , with pathology results pending. 11/21: c/o mild headaches, otherwise reports to be feeling better. denies focal weakness, nausea, vomiting or seizures. 11/22: The patient is awake and watching TV this morning. He denies any complaints but his did state he had stated he had a headache before he was seen. (Vic Preciado) System Review Comments Constitutional: Patient denies any fever or chills. HEENT: Patient denies any visual or hearing difficulty. Respiratory: Patient denies any shortness of breath or productive cough. Cardiovascular: Patient denies any chest pain, palpitations or irregular heartbeat. Gastrointestinal: Patient denies any abdominal pain, nausea or vomiting. 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 Musculoskeletal: Patient complains of not being able to walk and leg weakness. Neurologic: Patient complains of difficulty walking and leg weakness. He denies any headache, dizziness, numbness or tingling. (Vic Preciado) Exam Results Vital Signs Date Time Temp Pulse Resp B/P (MAP) Pulse Ox O2 Delivery O2 Flow Rate FiO2 11/22/16 10:00 58 11/22/16 08:28 96 Room Air 11/22/16 08:00 98.6 16 146/70 (95) 11/21/16 20:15 21 11/20/16 14:36 2.00 Intake and Output 11/22/16 11/22/16 11/23/16 08:00 16:00 00:00 Intake Total 989 ml Output Total 1700 ml Balance -711 ml (Vic Preciado) Physical Examination GENERAL: Patient is awake, alert & watching TV. Readily interacts but is distracted by the TV. No evident distress. Affect flat. SKIN: Warm, dry & intact w/o any evident rashes, ulcerations or lesions. HEENT: Normocephalic, atraumatic. PERRLA, EOMI. MMM & pink. NECK: No JVD, trachea midline. CARDIOVASCULAR: S1S2 w/RRR w/o M/G/R, radial & pedal pulses 2+ bilaterally, cap refill < 2 sec, no pedal edema. Monitor is sinus rhythm w/o any evident ectopy. RESPIRATORY: CTAB w/o W/R/R, equal excursion, nonlaboured, on RA. GASTROINTESTINAL: Abdomen soft, rounded, bowel sounds not appreciated. MUSCULOSKELETAL: GILMAN w/o difficulty, no evident deformity or clubbing. NEUROLOGICAL: Awake, alert & oriented to person & place. Speech clear & essentially flat, limited conversation, more interested in watching TV. PERRLA, EOMI. Sensation to light touch intact to all extremities. Strength symmetrical to all major flexion & extension muscle groups. (Vic Preciado) Lab, Micro, Other Results Recent Impressions Head CT 11/21/16 1400 Signed Impressions: Service Date/Time: Monday, November 21, 2016 14:38 - CONCLUSION: Stable noncontrast axial head CT small parafalcine subdural hematoma. Germán Watkins MD FACR Neck CTA 11/20/16 1243 Signed Impressions: Service Date/Time: Sunday, November 20, 2016 13:23 - CONCLUSION: Negative for carotid stenosis. Germán Watkins MD FACR Head CTA 11/20/16 1243 Signed Impressions: Service Date/Time: Sunday, November 20, 2016 13:23 - CONCLUSION: Mild atherosclerotic vascular disease. Perfusion looks better on the right than the left. Germán Watkins MD FACR Head CT 11/20/16 0000 Signed Impressions: Service Date/Time: Sunday, November 20, 2016 12:46 - CONCLUSION: Small parafalcine subdural hematoma without parenchymal hemorrhage. Germán Watkins MD FACR Chest X-Ray 11/20/16 0000 Signed Impressions: Service Date/Time: Sunday, November 20, 2016 13:07 - CONCLUSION: No acute disease. Germán Watkins MD FACR 11/20/16 11/20/16 11/21/16 11/21/16 11/22/16 11/22/16 06:00 18:00 06:00 18:00 06:00 18:00 Intake Total 3469 ml 989 ml Output Total 3575 ml 1700 ml Balance -106 ml -711 ml Intake Oral 1700 ml 240 ml IV Total 1769 ml 749 ml Output Urine Total 3575 ml 1700 ml Laboratory Tests Test 11/20/16 12:39 11/20/16 13:40 11/21/16 03:40 11/21/16 05:55 White Blood Count 14.1 TH/MM3 14.9 TH/MM3 Red Blood Count 4.93 MIL/MM3 4.70 MIL/MM3 Hemoglobin 14.4 GM/DL 13.4 GM/DL Bedside Hemoglobin 15.6 G/DL Hematocrit 43.6 % 42.0 % Bedside Hematocrit 46.0 % Mean Corpuscular Volume 88.4 FL 89.4 FL Mean Corpuscular Hemoglobin 29.2 PG 28.6 PG Mean Corpuscular Hemoglobin Concent 33.0 % 32.0 % Red Cell Distribution Width 14.9 % 15.0 % Platelet Count 405 TH/MM3 351 TH/MM3 Mean Platelet Volume 7.1 FL 7.1 FL Neutrophils (%) (Auto) 67.1 % Lymphocytes (%) (Auto) 22.8 % Monocytes (%) (Auto) 7.3 % Eosinophils (%) (Auto) 2.1 % Basophils (%) (Auto) 0.7 % Neutrophils # (Auto) 9.5 TH/MM3 Lymphocytes # (Auto) 3.2 TH/MM3 Monocytes # (Auto) 1.0 TH/MM3 Eosinophils # (Auto) 0.3 TH/MM3 Basophils # (Auto) 0.1 TH/MM3 CBC Comment AUTO DIFF Differential Comment AUTO DIFF CONFIRMED Prothrombin Time 10.0 SEC Prothromb Time International Ratio 0.9 RATIO Activated Partial Thromboplast Time 25.2 SEC Fibrinogen 514 mg/dL Bedside Sodium 141 MMOL/L Bedside Potassium 4.4 MMOL/L Bedside Chloride 106 MMOL/L Bedside Blood Urea Nitrogen 23 MG/DL Bedside Creatinine 1.3 MG/DL Bedside Glucose 94 MG/DL Total Creatine Kinase 62 U/L Troponin I LESS THAN 0.02 NG/ML Urine Color LIGHT-YELLOW Urine Turbidity CLEAR Urine pH 5.5 Urine Specific [place] 1.022 Urine Protein NEG mg/dL Urine Glucose (UA) NEG mg/dL Urine Ketones NEG mg/dL Urine Occult Blood MOD Urine Nitrite NEG Urine Bilirubin NEG Urine Urobilinogen LESS THAN 2.0 MG/DL Urine Leukocyte Esterase MOD Urine RBC 41 /hpf Urine WBC 12 /hpf Urine Squamous Epithelial Cells <1 /hpf Urine Mucus FEW /lpf Urine Yeast (Budding) OCC Urine Opiates Screen NEG Urine Barbiturates Screen NEG Urine Amphetamines Screen NEG Urine Benzodiazepines Screen NEG Urine Cocaine Screen NEG Urine Cannabinoids Screen NEG Nasal Screen MRSA (PCR) MRSA NOT DETECTED Blood Urea Nitrogen 16 MG/DL Creatinine 1.09 MG/DL Random Glucose 89 MG/DL Calcium Level 8.4 MG/DL Sodium Level 138 MEQ/L Potassium Level 4.1 MEQ/L Chloride Level 107 MEQ/L Carbon Dioxide Level 21.2 MEQ/L Anion Gap 10 MEQ/L Estimat Glomerular Filtration Rate 65 ML/MIN Test 11/22/16 05:03 White Blood Count 12.7 TH/MM3 Red Blood Count 4.40 MIL/MM3 Hemoglobin 13.0 GM/DL Hematocrit 39.1 % Mean Corpuscular Volume 88.8 FL Mean Corpuscular Hemoglobin 29.4 PG Mean Corpuscular Hemoglobin Concent 33.2 % Red Cell Distribution Width 14.7 % Platelet Count 307 TH/MM3 Mean Platelet Volume 7.2 FL Blood Urea Nitrogen 15 MG/DL Creatinine 1.24 MG/DL Random Glucose 96 MG/DL Calcium Level 7.9 MG/DL Sodium Level 137 MEQ/L Potassium Level 4.3 MEQ/L Chloride Level 105 MEQ/L Carbon Dioxide Level 23.9 MEQ/L Anion Gap 8 MEQ/L Estimat Glomerular Filtration Rate 56 ML/MIN Vital Signs Date Time Temp Pulse Resp B/P (MAP) Pulse Ox O2 Delivery O2 Flow Rate FiO2 11/22/16 10:00 58 11/22/16 08:28 96 Room Air 11/22/16 08:00 61 11/22/16 08:00 98.6 61 16 146/70 (95) 95 11/22/16 06:00 51 11/22/16 04:00 98.3 53 14 141/65 (90) 94 11/22/16 04:00 53 11/22/16 02:00 52 11/22/16 00:00 56 11/22/16 00:00 98.0 56 15 130/63 (85) 95 11/21/16 22:00 62 11/21/16 20:15 96 21 11/21/16 20:00 66 11/21/16 20:00 98.5 66 17 165/70 (101) 95 11/21/16 19:00 95 Room Air 11/21/16 18:00 60 11/21/16 16:00 56 11/21/16 16:00 98.1 56 12 130/60 (83) 95 11/21/16 14:00 65 11/21/16 12:00 97.8 62 18 147/67 (93) 95 11/21/16 12:00 63 11/21/16 10:00 65 11/21/16 08:00 98.4 58 15 153/89 (110) 96 11/21/16 08:00 95 11/21/16 08:00 58 11/21/16 07:00 96 Room Air 11/21/16 06:00 63 11/21/16 04:00 62 11/21/16 04:00 97.9 62 14 149/66 (93) 94 11/21/16 02:00 75 11/21/16 00:00 63 11/21/16 00:00 98.6 56 18 148/67 (94) 95 11/20/16 22:00 56 11/20/16 20:57 97 11/20/16 20:46 96 11/20/16 20:00 98.3 56 16 143/64 (90) 95 11/20/16 20:00 54 11/20/16 18:00 97.5 54 16 143/67 (92) 96 11/20/16 16:00 96.9 61 16 151/69 (96) 11/20/16 15:15 64 11/20/16 14:36 61 18 132/62 (85) 98 Nasal Cannula 2.00 11/20/16 14:16 62 18 139/62 (87) 97 Room Air 11/20/16 13:57 68 18 145/66 (92) 97 Nasal Cannula 2.00 11/20/16 13:41 72 18 160/70 (100) 98 Nasal Cannula 2.00 11/20/16 13:26 69 18 97 Room Air 11/20/16 13:15 63 18 159/74 (102) 98 Nasal Cannula 2.00 11/20/16 13:10 64 188/83 11/20/16 13:04 68 18 188/83 (118) 98 Nasal Cannula 2.00 11/20/16 13:01 18 98 Nasal Cannula 2.00 11/20/16 13:01 97 Nasal Cannula 2.00 11/20/16 12:40 99.0 67 18 226/93 (137) 97 Nasal Cannula 2.00 (Vic Preciado) Medical Decision Making Impression and Plan Impression: 1. Traumatic brain injury. Possible syncopal episode but appears to have fallen due to uneven ground, possible malfunctioning of walker. However he has had some increased gait difficulty and falling in the past few weeks. Patient himself attributes this to his knee problems. 2. Hypertension Stable neurologically. Plan: Primary management per Welding Inspector/Hospitalist. Continue neuro checks. Stat CT brain for any worsening neuro status. PT eval & tx. ST eval & tx. Non-chemical DVT prophylaxis. Advance diet as tolerated. From NSGY's perspective the patient may be transferred to a regular med/surg floor. (Vic Preciado) Attending Statement I have personally seen and examined the patient on the date of this note. Pertinent documentation and study results have been reviewed by the undersigned. I have personally developed the treatment plan and performed medical decision making. Agree with findings, exam, and treatment plan as noted above. On my examination today, Remains awake and alert. Mild confusion. No neurosurgical intervention anticipated. Stable for transfer to floor. (Jay Stone MD) Vic Preciado Nov 22, 2016 12:22 Jay Stone MD Nov 23, 2016 21:12
[2016-11-22] MEDS: ACETAMINOPHEN 325 MG TAB PO PRN (12:40)
[2016-11-22] MEDS: SODIUM CHLOR 0.9% 1000 ML INJ 1,000 ML IV SCH ×2 (14:15→14:41)
--- NOTE | 2016-11-22 17:17 | HHI.PR ---
Subjective Remarks patient denies cp/sob denies headache denies nausea or vomiting no fevers or chills Objective Vitals Vital Signs Date Time Temp Pulse Resp B/P (MAP) Pulse Ox O2 Delivery O2 Flow Rate FiO2 11/22/16 16:00 64 11/22/16 16:00 99.0 65 20 153/66 (95) 95 11/22/16 15:58 64 11/22/16 15:58 99.0 65 20 153/66 (95) 95 11/22/16 14:00 58 11/22/16 13:40 18 11/22/16 12:00 58 11/22/16 12:00 98.3 58 16 142/66 (91) 95 11/22/16 10:00 58 11/22/16 08:28 96 Room Air 11/22/16 08:00 61 11/22/16 08:00 98.6 61 16 146/70 (95) 95 11/22/16 06:00 51 11/22/16 04:00 98.3 53 14 141/65 (90) 94 11/22/16 04:00 53 11/22/16 02:00 52 11/22/16 00:00 56 11/22/16 00:00 98.0 56 15 130/63 (85) 95 11/21/16 22:00 62 11/21/16 20:15 96 21 11/21/16 20:00 66 11/21/16 20:00 98.5 66 17 165/70 (101) 95 11/21/16 19:00 95 Room Air 11/21/16 18:00 60 I/O 11/21/16 11/21/16 11/21/16 11/22/16 11/22/16 11/22/16 07:00 15:00 23:00 07:00 15:00 23:00 Intake Total 843 ml 2626 ml 989 ml Output Total 2000 ml 1575 ml 1700 ml Balance -1157 ml 1051 ml -711 ml Intake Oral 200 ml 1500 ml 240 ml IV Total 643 ml 1126 ml 749 ml Output Urine Total 2000 ml 1575 ml 1700 ml Result Diagram: 11/22/16 0503 11/22/16 0503 Imaging Last Impressions Head CT 11/21/16 1400 Signed Impressions: Service Date/Time: Monday, November 21, 2016 14:38 - CONCLUSION: Stable noncontrast axial head CT small parafalcine subdural hematoma. Germán Watkins MD FACR Neck CTA 11/20/16 1243 Signed Impressions: Service Date/Time: Sunday, November 20, 2016 13:23 - CONCLUSION: Negative for carotid stenosis. Germán Watkins MD FACR Head CTA 11/20/16 1243 Signed Impressions: Service Date/Time: Sunday, November 20, 2016 13:23 - CONCLUSION: Mild atherosclerotic vascular disease. Perfusion looks better on the right than the left. Germán Watkins MD FACR Chest X-Ray 11/20/16 0000 Signed Impressions: Service Date/Time: Sunday, November 20, 2016 13:07 - CONCLUSION: No acute disease. Germán Watkins MD FACR Objective Remarks Sitting in chair at bedside, LAKSHMI AAOx3 Clear lungs BL S1S2 RRR no MRG Abdomen soft, NT, ND Nuero CN ii - XII grossly intact Urinary Catheter: No Vascular Central Line Catheter: No A/P Assessment and Plan Assessment: 81yM with history of multiple prior CVAs and dementia presents after syncopal episode with fall sustaining small Subdural hematoma. Admit to ICU for close observation and repeat head CT in AM. unlikely to benefit from platelet transfusion given small size of SDH and certainly risks associated with transfusion. will hold ASA and plavix given head bleed. Parafalcine Subdural Hematoma - frequent neuro checks - no anticoagulation - NS @ 84cc/hr - hold ASA, Plavix - neurosurgery consult: Dr. Stone - repeat CT head in AM Headache - tylenol prn - much improved Syncope - previously worked up at [facility] - will keep on telemetry - No events on telemetry 11/22 2D Echocardiogram with normal Ef of 55 to 60% and grade 1 diastolic dysfunction. Urinary retention - Patient self catheterizes at home. - due to BPH - Continue Hitchcock Catheter. t SCDs, pepcid. no pharmacologic dvt prophylaxis given head bleed Discharge Planning Ok to transfer to the floor. North Harris MD Nov 22, 2016 17:17
[2016-11-23] VITALS (11 sets, daily range): BP systolic 133–162; BP diastolic 60–78; PULSE 53–76; RESP 12–19; TEMP 98–98.7; O2SAT 94–98
[2016-11-23] MEDS: SODIUM CHLOR 0.9% 1000 ML INJ 1,000 ML IV SCH (01:04)
[2016-11-23] MEDS: INSULIN NovoLIN REGULAR SUPPLEMENTAL SCALE SQ SCH ×5 (03:00→21:00)
[2016-11-23] MEDS: CHLORHEXIDINE GLUCONATE 2 % 1 PACK (2 CLOTHS) TOP SCH (04:00)
[2016-11-23 05:45] LABS: HEMATOCRIT 40.5 % (39.0-51.0); MEAN CELL VOLUME 89.1 FL (80.0-100.0); MEAN CORPUSCULAR HEMOGLOBIN 29.1 PG (27.0-34.0); MEAN CORPUSCULAR HGB CONC 32.7 % (32.0-36.0); PLATELET COUNT 322 TH/MM3 (150-450); RED BLOOD COUNT 4.55 MIL/MM3 (4.50-5.90); REVIEW FLAG FINAL; WHITE BLOOD COUNT 12.6 TH/MM3 (4.0-11.0)
[2016-11-23 06:07] LABS: POTASSIUM 4.2 MEQ/L (3.5-5.1)
[2016-11-23] MEDS: LISINOPRIL 5 MG TAB PO SCH (08:55)
[2016-11-23] MEDS: amLODIPine BESYLATE 5 MG TAB PO SCH (08:55)
[2016-11-23] MEDS: FAMOTIDINE 20 MG TAB PO SCH ×2 (08:55→21:33)
[2016-11-23] MEDS: DOCUSATE SODIUM 50 MG/SENNA 8.6 MG TAB PO SCH ×2 (08:55→21:00)
[2016-11-23] MEDS: ACETAMINOPHEN 325 MG TAB PO PRN ×2 (13:38→21:58)
[2016-11-23] MEDS: hydrALAZINE HCL 20 MG/ML VIAL IV PUSH PRN (18:36)
--- NOTE | 2016-11-23 19:32 | HHI.PR ---
Subjective Remarks seen at 6pm Patient denies cp/sob denies fevers/chills denies diarrhea BP labile Objective Vitals Vital Signs Date Time Temp Pulse Resp B/P (MAP) Pulse Ox O2 Delivery O2 Flow Rate FiO2 11/23/16 18:00 54 11/23/16 16:00 98.2 54 15 140/63 (88) 95 11/23/16 16:00 56 11/23/16 14:00 76 11/23/16 12:00 98.0 62 17 157/72 (100) 95 11/23/16 12:00 62 11/23/16 10:00 64 11/23/16 08:31 95 21 11/23/16 08:00 53 11/23/16 08:00 98.2 56 12 133/60 (84) 98 11/23/16 08:00 98 Room Air 11/23/16 04:00 98.0 61 13 141/78 (99) 94 11/23/16 04:00 61 11/23/16 02:41 96 21 11/23/16 00:00 98.7 62 12 141/69 (93) 95 11/23/16 00:00 62 11/22/16 20:00 64 11/22/16 20:00 98.5 64 18 124/73 (90) 95 I/O 11/22/16 11/22/16 11/22/16 11/23/16 11/23/16 11/23/16 07:00 15:00 23:00 07:00 15:00 23:00 Intake Total 989 ml 732 ml 1014 ml 1043 ml Output Total 1700 ml 2600 ml 3000 ml 2050 ml Balance -711 ml -1868 ml -1986 ml -1007 ml Intake Oral 240 ml 400 ml 814 ml 440 ml IV Total 749 ml 332 ml 200 ml 603 ml Output Urine Total 1700 ml 2600 ml 3000 ml 2050 ml # Bowel Movements 1 Result Diagram: 11/23/1644111/23/16 0442 Imaging Last Impressions Head CT 11/21/16 1400 Signed Impressions: Service Date/Time: Monday, November 21, 2016 14:38 - CONCLUSION: Stable noncontrast axial head CT small parafalcine subdural hematoma. Germán Watkins MD FACR Neck CTA 11/20/16 1243 Signed Impressions: Service Date/Time: Sunday, November 20, 2016 13:23 - CONCLUSION: Negative for carotid stenosis. Germán Watkins MD FACR Head CTA 11/20/16 1243 Signed Impressions: Service Date/Time: Sunday, November 20, 2016 13:23 - CONCLUSION: Mild atherosclerotic vascular disease. Perfusion looks better on the right than the left. Germán Watkins MD FACR Chest X-Ray 11/20/16 0000 Signed Impressions: Service Date/Time: Sunday, November 20, 2016 13:07 - CONCLUSION: No acute disease. Germán Watkins MD FACR Objective Remarks Sitting in chair at bedside, LAKSHMI AAOx3 Clear lungs BL S1S2 RRR no MRG Abdomen soft, NT, ND Nuero CN ii - XII grossly intact Medications and IVs Current Medications Medications (Trade) Dose Ordered Sig/Keith Route Start Time Stop Time Status Last Admin (Mag-Ox) 800 mg UNSCH PRN PO 11/20/16 13:30 Magnesium Sulfate 4 gm/Sodium Chloride 100 ml @ 50 mls/hr UNSCH PRN IV 11/20/16 13:30 Magnesium Sulfate 2 gm/Sodium Chloride 100 ml @ 50 mls/hr UNSCH PRN IV 11/20/16 13:30 Potassium Chloride 100 ml @ 50 mls/hr Q2H PRN IV 11/20/16 13:30 Potassium Chloride 100 ml @ 50 mls/hr Q2H PRN IV 11/20/16 13:30 Potassium Chloride 100 ml @ 50 mls/hr Q2H PRN IV 11/20/16 13:30 Potassium Chloride 100 ml @ 25 mls/hr UNSCH PRN IV 11/20/16 13:30 (K-Phos) 2,000 mg Q4H PRN PO 11/20/16 13:30 (K-Phos) 2,000 mg UNSCH PRN PO/TUBE 11/20/16 13:30 Potassium Phosphate 30 mmol/ Sodium Chloride 260 ml @ 42 mls/hr UNSCH PRN IV 11/20/16 13:30 Sodium Phosphate 30 mmol/Sodium Chloride 250 ml @ 42 mls/hr UNSCH PRN IV 11/20/16 13:30 (D50w (Vial) Inj) 25 ml UNSCH PRN IV PUSH 11/20/16 13:30 (NovoLIN R SUPPLEMENTAL SCALE) 1 ACHS AND 3AM SQ 11/20/16 16:00 11/22/16 09:08 (Pepcid) 20 mg Q12HR PO 11/20/16 21:00 11/23/16 08:55 (Zofran Inj) 4 mg Q6H PRN IV 11/20/16 13:30 (Duoneb Neb) 1 ampule Q2HR NEB PRN INH 11/20/16 13:30 Miscellaneous Information 1 Q361D XX 11/20/16 13:30 (Chlorhexidine 2% Cloth) 3 pack Taper DAILY@04 TOP 11/21/16 04:00 11/17/17 03:59 11/23/16 04:00 (Chlorhexidine 2% Cloth) 3 pack UNSCH PRN TOP 11/20/16 13:30 (Grace-Colace) 1 tab BID PO 11/20/16 21:00 11/23/16 08:55 (Tylenol) 650 mg Q4H PRN PO 11/20/16 15:00 11/23/16 13:38 (Apresoline Inj) 10 mg Q4H PRN IV PUSH 11/20/16 20:45 11/23/16 18:36 (Trandate Inj) 10 mg Q6H PRN IV PUSH 11/21/16 03:45 11/21/16 09:50 (Norvasc) 5 mg DAILY PO 11/22/16 09:00 11/23/16 08:55 (Prinivil) 5 mg DAILY PO 11/21/16 16:00 11/23/16 08:55 Urinary Catheter: Yes Assessment to: Continue Hitchcock insert reason: Obstruction/Retention Vascular Central Line Catheter: No A/P Assessment and Plan Assessment: 81yM with history of multiple prior CVAs and dementia presents after syncopal episode with fall sustaining small Subdural hematoma. Admit to ICU for close observation and repeat head CT in AM. unlikely to benefit from platelet transfusion given small size of SDH and certainly risks associated with transfusion. will hold ASA and plavix given head bleed. Parafalcine Subdural Hematoma - frequent neuro checks - no anticoagulation - neurosurgery consulted - management as per neurosurgery Headache - tylenol prn - much improved Syncope - previously worked up at [facility] - will keep on telemetry - No events on telemetry 11/22 2D Echocardiogram with normal Ef of 55 to 60% and grade 1 diastolic dysfunction. Urinary retention - Patient self catheterizes at home. - due to BPH - Continue Hitchcock Catheter. t SCDs, pepcid. no pharmacologic dvt prophylaxis given head bleed Discharge Planning DC pending neurosurgery clearance. Will need PT at rehab. North Harris MD Nov 23, 2016 19:32
--- NOTE | 2016-11-23 21:14 | HHI.NSPN ---
History Chief Complaint: No complaints. Interval History No new problems reported per nursing staff. Patient has had stable blood pressure. No neurologic changes. Exam Results Vital Signs Date Time Temp Pulse Resp B/P (MAP) Pulse Ox O2 Delivery O2 Flow Rate FiO2 11/23/16 18:00 54 11/23/16 16:00 98.2 15 140/63 (88) 95 11/23/16 08:31 21 11/23/16 08:00 Room Air 11/20/16 14:36 2.00 Intake and Output 11/23/16 11/23/16 11/24/16 08:00 16:00 00:00 Intake Total 1014 ml 1043 ml Output Total 3000 ml 2050 ml Balance -1986 ml -1007 ml Physical Examination GENERAL: Patient is awake, alert, no apparent distress SKIN: Warm, dry & intact w/o any evident rashes, ulcerations or lesions. HEENT: Normocephalic, atraumatic. PERRLA, EOMI. MMM & pink. NECK: No JVD, trachea midline. CARDIOVASCULAR: S1S2 w/RRR w/o M/G/R, radial & pedal pulses 2+ bilaterally, cap refill < 2 sec, no pedal edema. Monitor is sinus rhythm w/o any evident ectopy. RESPIRATORY: CTAB w/o W/R/R, equal excursion, nonlaboured, on RA. GASTROINTESTINAL: Abdomen soft, rounded, bowel sounds not appreciated. MUSCULOSKELETAL: GILMAN w/o difficulty, no evident deformity or clubbing. NEUROLOGICAL: Awake, alert & oriented to person & place. Speech clear but somewhat slow. Continues to have flat affect. Responds appropriately to most questions and commands, but appears disinterested PERRLA, EOMI. Sensation to light touch intact to all extremities. Strength symmetrical to all major flexion & extension muscle groups. Lab, Micro, Other Results Laboratory Tests Test 11/23/16 04:42 White Blood Count 12.6 TH/MM3 Red Blood Count 4.55 MIL/MM3 Hemoglobin 13.2 GM/DL Hematocrit 40.5 % Mean Corpuscular Volume 89.1 FL Mean Corpuscular Hemoglobin 29.1 PG Mean Corpuscular Hemoglobin Concent 32.7 % Red Cell Distribution Width 15.0 % Platelet Count 322 TH/MM3 Mean Platelet Volume 7.5 FL Blood Urea Nitrogen 18 MG/DL Creatinine 1.17 MG/DL Random Glucose 103 MG/DL Calcium Level 8.2 MG/DL Sodium Level 134 MEQ/L Potassium Level 4.2 MEQ/L Chloride Level 101 MEQ/L Carbon Dioxide Level 24.0 MEQ/L Anion Gap 9 MEQ/L Estimat Glomerular Filtration Rate 60 ML/MIN Medical Decision Making Impression and Plan Impression: 1. Traumatic brain injury. Possible syncopal episode but appears to have fallen due to uneven ground, possible malfunctioning of walker. 2. Hypertension Plan: Findings discussed with patient. Discussed with nursing staff. Stable for transfer to regular floor Me advance activity as tolerated Stable for discharge from neurosurgical standpoint Jay Stone MD Nov 23, 2016 21:14
[2016-11-24] VITALS: BP 148/72; PULSE 60; RESP 19; TEMP 97.7; O2SAT 94
[2016-11-24] MEDS: INSULIN NovoLIN REGULAR SUPPLEMENTAL SCALE SQ SCH ×3 (03:00→11:00)
[2016-11-24] MEDS: CHLORHEXIDINE GLUCONATE 2 % 1 PACK (2 CLOTHS) TOP SCH (03:39)
[2016-11-24 04:00] VITALS: BP 140/65; PULSE 53; RESP 19; TEMP 97.6; O2SAT 93
[2016-11-24 06:26] LABS: HEMATOCRIT 42.5 % (39.0-51.0); MEAN CELL VOLUME 88.7 FL (80.0-100.0); MEAN CORPUSCULAR HEMOGLOBIN 28.9 PG (27.0-34.0); MEAN CORPUSCULAR HGB CONC 32.6 % (32.0-36.0); PLATELET COUNT 331 TH/MM3 (150-450); RED BLOOD COUNT 4.79 MIL/MM3 (4.50-5.90); RED CELL DISTRIBUTION WIDTH 14.9 % (11.6-17.2); REVIEW FLAG FINAL; WHITE BLOOD COUNT 12.5 TH/MM3 (4.0-11.0)
[2016-11-24 06:55] LABS: BICARBONATE 25.1 MEQ/L (21.0-32.0)
[2016-11-24 08:00] VITALS: BP 134/64; PULSE 57; RESP 20; TEMP 98.2; O2SAT 95
[2016-11-24] MEDS: DOCUSATE SODIUM 50 MG/SENNA 8.6 MG TAB PO SCH (08:21)
[2016-11-24] MEDS: FAMOTIDINE 20 MG TAB PO SCH (08:22)
[2016-11-24] MEDS: ACETAMINOPHEN 325 MG TAB PO PRN (08:23)
[2016-11-24] MEDS ORDERED: amLODIPine BESYLATE 5 MG TAB PO SCH (09:00)
[2016-11-24] MEDS ORDERED: LISINOPRIL 5 MG TAB PO SCH (09:00)
[2016-11-24 12:00] VITALS: BP 147/69; PULSE 81; RESP 20; TEMP 98.6; O2SAT 94
[2016-11-24] MEDS ORDERED: AMLO5 PO (12:44)
[2016-11-24] MEDS ORDERED: LISI-519 PO (12:44)
[2016-11-24] MEDS ORDERED: SENN1TAB PO (12:44)
--- NOTE | 2016-11-24 12:46 | HHI.DCPOC ---
Discharge Care Plan Diagnosis: (1) Syncope (2) Headache (3) Subdural hematoma (4) Urinary retention Goals to Promote Your Health * To prevent worsening of your condition and complications * To maintain your health at the optimal level Directions to Meet Your Goals Take your medications as prescribed Follow your dietary instruction Follow activity as directed Keep your appointments as scheduled Take your immunizations and boosters as scheduled If your symptoms worsen call your PCP, if no PCP go to Urgent Care Center or Emergency Room Smoking is Dangerous to Your Health. Avoid second hand smoke Call the 24-hour hour crisis hotline for domestic abuse at [place] Harris MD Nov 24, 2016 12:46
--- NOTE | 2016-11-24 12:52 | HHI.DS ---
Discharge Summary Admission Date Nov 20, 2016 at 14:00 Discharge Date: Nov 24, 2016 Admitting Diagnosis SUBDURAL HEMATOMA (1) Subdural hematoma ICD Code: I62.00 - Nontraumatic subdural hemorrhage, unspecified Diagnosis: Principal Status: Acute (2) Headache ICD Code: R51 - Headache Diagnosis: Principal Status: Resolved (3) Syncope ICD Code: R55 - Syncope and collapse Diagnosis: Principal Status: Resolved (4) Urinary retention ICD Code: R33.9 - Retention of urine, unspecified Diagnosis: Principal Status: Chronic Procedures none Brief History - From Admission This is a 81yM with history of multiple prior CVAs and dementia, and on ASA and Plavix for his prior CVAs who presents after he syncopized and [place]. Due to his dementia, he is a poor historian, but his is with him. She reports that he has been in his usual state of health and suddenly passed out, fell out of his motorized wheelchair and hit the back of his head. He immediately regained consciousness, and she felt that he was weak on his left side with slurred speech, so he was brought emergently to the ER. In the ER, he did not have any apparent weakness. CT head demonstrated very small parafalcine subdural hematoma. The patient complains of headache only, denies any other associated symptoms. CBC/BMP: 11/24/16 0602 11/24/16 0602 Significant Findings Laboratory Tests Test 11/22/16 05:03 11/23/16 04:42 11/24/16 06:02 White Blood Count 12.7 TH/MM3 (4.0-11.0) 12.6 TH/MM3 (4.0-11.0) 12.5 TH/MM3 (4.0-11.0) Red Blood Count 4.40 MIL/MM3 (4.50-5.90) Calcium Level 7.9 MG/DL (8.5-10.1) 8.2 MG/DL (8.5-10.1) 8.0 MG/DL (8.5-10.1) Estimat Glomerular Filtration Rate 56 ML/MIN (>89) 60 ML/MIN (>89) 64 ML/MIN (>89) Sodium Level 134 MEQ/L (136-145) 135 MEQ/L (136-145) Blood Urea Nitrogen 22 MG/DL (7-18) Random Glucose 107 MG/DL (74-106) Imaging Last Impressions Head CT 11/21/16 1400 Signed Impressions: Service Date/Time: Monday, November 21, 2016 14:38 - CONCLUSION: Stable noncontrast axial head CT small parafalcine subdural hematoma. Germán Watkins MD FACR Neck CTA 11/20/16 1243 Signed Impressions: Service Date/Time: Sunday, November 20, 2016 13:23 - CONCLUSION: Negative for carotid stenosis. Germán Watkins MD FACR Head CTA 11/20/16 1243 Signed Impressions: Service Date/Time: Sunday, November 20, 2016 13:23 - CONCLUSION: Mild atherosclerotic vascular disease. Perfusion looks better on the right than the left. Germán Watkins MD FACR Chest X-Ray 11/20/16 0000 Signed Impressions: Service Date/Time: Sunday, November 20, 2016 13:07 - CONCLUSION: No acute disease. Germán Watkins MD FACR PE at Discharge Sitting in chair at bedside, LAKSHMI AAOx3 Clear lungs BL S1S2 RRR no MRG Abdomen soft, NT, ND Nuero CN ii - XII grossly intact Pt update on day of discharge Denies cp/sob. Denies headache or dizziness. BP much improved and now within normal range. Hospital Course 81yM with history of multiple prior CVAs and dementia presents after syncopal episode with fall sustaining small Subdural hematoma. Admit to ICU for close observation and repeat head CT in AM. unlikely to benefit from platelet transfusion given small size of SDH and certainly risks associated with transfusion. He was admitted to the medical floor, frequent neuro checks were ordered, all at the [place] discontinued and neurosurgery consulted. The patient was managed conservatively as per neurosurgery recommendations. Patient had a CTA of the carotids which was negative, head CTA showed mild atherosclerotic vascular disease and also reported the perfusion looked better on the right than the left. However it did not show any other abnormalities. Repeat head CT obtained on shows 4 showed stable noncontrast aches. Head CT with a small parafalcine subdural hematoma. Patient complained of headache which is at the result of the patient's subdural hematoma. Headache was treated with Tylenol when necessary and improved. Patient syncope had been previously worked up at [facility]. The patient was monitored on telemetry which did not show any events. A 2-D echocardiogram showed a normal EF of 55-60% with grade 1 diastolic dysfunction. Patient also had some urinary retention which seems to be chronic as patient stated that he self catheterizes at home. Hitchcock catheter was placed and then discontinued before leaving home. GI prophylaxis was provided with Pepcid and DVT prophylaxis was provided with SCDs and of course no chemoprophylaxis was prescribed due to intracranial bleed. Patient was discharged to inpatient rehabilitation once cleared by neurosurgery. Pt Condition on Discharge: Stable Discharge Disposition: Rehab Inpatient Discharge Time: > 30 minutes Discharge Instructions DIET: Follow Instructions for: Heart Healthy Diet Activities you can perform: See Additionl Instruction Activities to Avoid: Contact Sports, Prolonged Standing, Strenuous Activity Other Activity Instructions: as per PT instructions Follow up Referrals: PCP Follow-up - 2-3 Days New Medications: Amlodipine (Norvasc) 5 Mg Tab 10 MG PO DAILY for Blood Pressure Management, #30 TAB Lisinopril (Lisinopril) 5 Mg Tab 10 MG PO DAILY for Blood Pressure Management, #30 TAB Sennosides-Docusate Sodium (Senna Plus 8.6-50 mg) 8.6 Mg-50 Mg Tab 1 TAB PO BID for Constipation, #30 TAB [place] MD Nov 24, 2016 12:52
[2016-12-13] MEDS ORDERED: CEFU1TAB20 PO (08:39)
[2016-12-13] MEDS ORDERED: SENN1TAB PO (08:39)
[2016-12-13] MEDS ORDERED: AMLO10 PO (08:39)
[2016-12-13] MEDS ORDERED: LISI10TA3 PO (08:39)
[2016-12-13] MEDS ORDERED: FAMO20TA2 PO (08:39)
[2016-12-13] MEDS ORDERED: TAMS5CAP PO (08:39)
[2016-12-13] MEDS ORDERED: LACT PO (08:39)
== END 2016-11-24 14:46 | DRG 87 ==
LOC: NEPE 12:34 → NEDH 14:00 → N03B 14:43 → N05B 11-23 19:04 → UNDODISIN 11-24 14:23
PROVIDERS: ADMIT Hospitalist; ATTEND Hospitalist
DX: S06.5X1A Traumatic subdural hemorrhage with loss of consciousness of 30 minutes or less, initial encounter (principal); F03.90 Unspecified dementia, unspecified severity, without behavioral disturbance, psychotic disturbance, mood disturbance, and anxiety; I10 Essential (primary) hypertension; H91.93 Unspecified hearing loss, bilateral; R40.2432 Glasgow coma scale score 3-8, at arrival to emergency department; M54.2 Cervicalgia; N40.0 Benign prostatic hyperplasia without lower urinary tract symptoms; R33.9 Retention of urine, unspecified; R29.6 Repeated falls; Z66 Do not resuscitate; Z79.82 Long term (current) use of aspirin; Z85.46 Personal history of malignant neoplasm of prostate; Z92.3 Personal history of irradiation; Z86.73 Personal history of transient ischemic attack (TIA), and cerebral infarction without residual deficits; W05.2XXA Fall from non-moving motorized mobility scooter, initial encounter; Y92.89 Other specified places as the place of occurrence of the external cause
CPT/HCPCS: 70450; 70496; 70498; 71010; 80048; 80307; 81001; 82435; 82550; 82565; 82947; 82948; 84132; 84295; 84484; 84520; 85025; 85027; 85384; 85610; 85730; 86850; 86900; 86901; 87641; 93005; 93306; 94150; 94640; 94667; 94668; 96374; J0360; J7030; J7050; P9612; Q9967

== ENCOUNTER 2017-07-13 12:30 | Emergency (ER) | payer MEDICARE, BC, OTHER ==
[~2017-07-13] VITALS: Ht 177.8 cm; Wt 89.0 kg
[~2017-07-13 12:30] MED LIST changes: +AMLO10 PO; -AMOX250C PO; -BO60R PR; +CEFU1TAB20 PO; -DETR2CAP; +FAMO20TA2 PO; +LACT PO; +LISI10TA3 PO; -LORT5TAB PO; -LOSA25TA31 PO; +SENN1TAB PO; +TAMS5CAP PO
[2017-07-13 12:35] VITALS: BP 146/76; PULSE 78; RESP 16; TEMP 98.7; O2SAT 96
[2017-07-13] MEDS ORDERED: PLAV75TA29 PO (12:53)
[2017-07-13] MEDS ORDERED: ASPI-516 CHEW (12:53)
[2017-07-13] MEDS ORDERED: DONE10TA7 PO (12:53)
[2017-07-13] MEDS ORDERED: LOSA100T PO (12:53)
[2017-07-13] MEDS ORDERED: PRIL20TA2 PO (12:53)
[2017-07-13] MEDS ORDERED: SODIUM CHLORIDE 0.9% FLUSH 10 ML FLUSH IVF PRN (13:00)
--- NOTE | 2017-07-13 13:18 | PD ---
HPI Chief Complaint: Fall Time Seen by Provider: 13:00 Travel History International Travel<30 days: No Contact w/Intl Traveler<30days: No Traveled to known affect area: No History of Present Illness HPI 82-year-old male patient with history of dementia, presents to the ER today because he has been falling multiple times today according to his , he fell and hit his right side of the abdomen against the [place] last night, they had to call ambulance crew to come pick him back up. He did not report any other injuries. It is unclear whether he hit his head or not. His states that he has been feeling more weak recently, and she states that she thinks he has a UTI, but has not yet started antibiotics on him because she wants him checked out first. He has not been having any vomiting but has been having some diarrhea as well. He denies any chest pains, shortness of breath, or other symptoms. Modifying Factors: None Associated Signs & Symptoms: General weakness, frequent falls Risk Factors: Elderly, dementia PFSH Past Medical History Hx Anticoagulant Therapy: Yes (plavix, asa 325mg) Arthritis: Yes (hands, cortisone shot this week in left knee) Asthma: No Autoimmune Disease: No Anxiety: No Depression: No Heart Rhythm Problems: No Cancer: Yes (PROSTATE ) Cardiovascular Problems: Yes (htn on meds) High Cholesterol: No Chemotherapy: No Chest Pain: No Congestive Heart Failure: No COPD: No Cerebrovascular Accident: Yes (tia) Diabetes: No Diminished Hearing: Yes (MUKESH) Endocrine: No Gastrointestinal Disorders: Yes GERD: Yes Genitourinary: No Hiatal Hernia: No Hypertension: Yes Immune Disorder: No Kidney Stones: No Musculoskeletal: Yes Neurologic: Yes (dementia) Psychiatric: No Reproductive: No Respiratory: No Migraines: No Radiation Therapy: Yes Renal Failure: No Seizures: No Sickle Cell Disease: No Sleep Apnea: No Thyroid Disease: No Ulcer: No Past Surgical History Abdominal Surgery: No AICD: No Arteriovenous Shunt: No Cardiac Surgery: Yes (heart cath 20 years ago) Ear Surgery: No Endocrine Surgery: No Eye Surgery: Yes (mukesh cataracts- 2015. Dr. Dumont) Genitourinary Surgery: Yes (Mass removed from kidney last Monday by Dr. Downs, waiting on biopsy) Gynecologic Surgery: No Insulin Pump: No Joint Replacement: No Oral Surgery: Yes (teeth removed) Pacemaker: No Thoracic Surgery: No Other Surgery: Yes Social History Alcohol Use: No Tobacco Use: No Substance Use: No Allergies-Medications (Allergen,Severity, Reaction): Coded Allergies: No Known Allergies (Verified Adverse Reaction, Unknown, 07/13/17) Reported Meds & Prescriptions Reported Meds & Active Scripts Active Reported Plavix (Clopidogrel Bisulfate) 75 Mg Tab 75 Mg PO DAILY Aspirin 81 Mg Chew 81 Mg CHEW DAILY Donepezil 10 Mg Tab 10 Mg PO HS Prilosec (Omeprazole Magnesium) 20 Mg Tab 20 Mg PO DAILY Losartan (Losartan Potassium) 100 Mg Tab 100 Mg PO DAILY Review of Systems Except as stated in HPI: all other systems reviewed are Neg Physical Exam Narrative GENERAL: Well-developed elderly white male patient currently in mild distress. Awake and oriented 3. SKIN: Focused skin assessment warm/dry. HEAD: Atraumatic. Normocephalic. EYES: Pupils equal and round. No scleral icterus. No injection or drainage. ENT: No nasal bleeding or discharge. Mucous membranes pink and moist. NECK: Trachea midline. No JVD. No midline C-spine tenderness. CARDIOVASCULAR: Regular rate and rhythm. No murmur appreciated. RESPIRATORY: No accessory muscle use. Clear to auscultation. Breath sounds equal bilaterally. GASTROINTESTINAL: Abdomen soft, right upper quadrant tenderness without guarding or rebound, nondistended. Hepatic and splenic margins not palpable. MUSCULOSKELETAL: No obvious deformities. No clubbing. No cyanosis. No edema. NEUROLOGICAL: Awake and alert. No obvious cranial nerve deficits. Motor grossly within normal limits. Normal speech. PSYCHIATRIC: Appropriate mood and affect; insight and judgment poor. Data Data Last Documented VS Vital Signs Date Time Temp Pulse Resp B/P (MAP) Pulse Ox O2 Delivery O2 Flow Rate FiO2 07/13/17 13:45 98 Room Air 07/13/17 12:35 98.7 78 16 146/76 (99) Orders Orders Electrocardiogram (07/13/17 13:00) Complete Blood Count With Diff (07/13/17 13:00) Comprehensive Metabolic Panel (07/13/17 13:00) Ckmb (Isoenzyme) Profile (07/13/17 13:00) Troponin I (07/13/17 13:00) Urinalysis - C+S If Indicated (07/13/17 13:00) Ct Brain W/O Iv Contrast(Rout) (07/13/17 13:00) Ct Cerv Spine W/O Contrast (07/13/17 13:00) Ecg Monitoring (07/13/17 13:00) Iv Access Insert/Monitor (07/13/17 13:00) Oximetry (07/13/17 13:00) Sodium Chloride 0.9% Flush (Ns Flush) (07/13/17 13:00) Ct Thorax/ Chest W Iv Contrast (07/13/17 13:00) Ct Abd/Pel W Iv Contrast(Rout) (07/13/17 13:00) Iohexol 350 Inj (Omnipaque 350 Inj) (07/13/17 14:26) Labs Laboratory Tests Test 07/13/17 13:26 07/13/17 15:50 White Blood Count 8.0 TH/MM3 Red Blood Count 4.44 MIL/MM3 Hemoglobin 12.4 GM/DL Hematocrit 37.8 % Mean Corpuscular Volume 85.1 FL Mean Corpuscular Hemoglobin 27.9 PG Mean Corpuscular Hemoglobin Concent 32.8 % Red Cell Distribution Width 14.1 % Platelet Count 363 TH/MM3 Mean Platelet Volume 7.1 FL Neutrophils (%) (Auto) 78.6 % Lymphocytes (%) (Auto) 10.5 % Monocytes (%) (Auto) 7.6 % Eosinophils (%) (Auto) 2.3 % Basophils (%) (Auto) 1.0 % Neutrophils # (Auto) 6.3 TH/MM3 Lymphocytes # (Auto) 0.8 TH/MM3 Monocytes # (Auto) 0.6 TH/MM3 Eosinophils # (Auto) 0.2 TH/MM3 Basophils # (Auto) 0.1 TH/MM3 CBC Comment DIFF FINAL Differential Comment Blood Urea Nitrogen 11 MG/DL Creatinine 1.30 MG/DL Random Glucose 107 MG/DL Total Protein 7.0 GM/DL Albumin 2.4 GM/DL Calcium Level 8.1 MG/DL Alkaline Phosphatase 74 U/L Aspartate Amino Transf (AST/SGOT) 27 U/L Alanine Aminotransferase (ALT/SGPT) 19 U/L Total Bilirubin 0.6 MG/DL Sodium Level 132 MEQ/L Potassium Level 4.9 MEQ/L Chloride Level 106 MEQ/L Carbon Dioxide Level 19.7 MEQ/L Anion Gap 6 MEQ/L Estimat Glomerular Filtration Rate 53 ML/MIN Total Creatine Kinase 90 U/L Troponin I LESS THAN 0.02 NG/ML Urine Color YELLOW Urine Turbidity CLEAR Urine pH 5.5 Urine Specific [place] GREATER/EQUAL 1.030 Urine Protein NEG mg/dL Urine Glucose (UA) NEG mg/dL Urine Ketones TRACE mg/dL Urine Occult Blood NEG Urine Nitrite NEG Urine Bilirubin NEG Urine Urobilinogen 0.2 MG/DL Urine Leukocyte Esterase NEG Urine WBC 0-2 /hpf Urine Squamous Epithelial Cells 0-5 /hpf Urine Mucus MOD /lpf Microscopic Urinalysis Comment CULT NOT INDICATED MDM Medical Decision Making Medical Screen Exam Complete: Yes Emergency Medical Condition: Yes Medical Record Reviewed: Yes Interpretation(s) EKG shows sinus bradycardia at a rate of 57 bpm, no ST elevation or depression, and no arrhythmias. No significant T-wave inversions. Laboratory Tests Test 07/13/17 13:26 07/13/17 15:50 Red Blood Count 4.44 MIL/MM3 (4.50-5.90) Hemoglobin 12.4 GM/DL (13.0-17.0) Hematocrit 37.8 % (39.0-51.0) Neutrophils (%) (Auto) 78.6 % (16.0-70.0) Lymphocytes # (Auto) 0.8 TH/MM3 (1.0-4.8) Random Glucose 107 MG/DL (74-106) Albumin 2.4 GM/DL (3.4-5.0) Calcium Level 8.1 MG/DL (8.5-10.1) Sodium Level 132 MEQ/L (136-145) Carbon Dioxide Level 19.7 MEQ/L (21.0-32.0) Estimat Glomerular Filtration Rate 53 ML/MIN (>89) Troponin I LESS THAN 0.02 NG/ML Urine Ketones TRACE mg/dL (NEG) Urine Mucus MOD /lpf (OCC) Differential Diagnosis General weakness, falls: Intra-abdominal injuries versus dehydration versus sepsis versus intracranial injuries Narrative Course Vital signs are stable in the ER. Patient has no focal neurological deficits. He is ambulatory in the ER without issues although he does need some help of a walker. At this point, lab work shows UTI. My plan would be to release the patient with follow-up closely with primary care doctor. Patient's states that she has antibiotics at home for UTI already and she should start these. CAT scan did not show any signs of acute injuries. Although I do suspect that he may have some contusions to his right ribs. Return for any worsening in weakness, any fevers, or new symptoms as needed. The plan has been discussed with him he states understanding. Diagnosis Primary Impression: Contusion of rib on right side Additional Impressions: UTI (urinary tract infection) Fall Disposition: 01 DISCHARGE HOME Condition: Stable SoonMatty means MD Jul 13, 2017 13:18
[2017-07-13 13:30] LABS: AUTOMATED NEUTROPHIL # 6.3 TH/MM3 (1.8-7.7); BASOPHIL # 0.1 TH/MM3 (0-0.2); EOSINOPHIL # 0.2 TH/MM3 (0-0.4); EOSINOPHIL % 2.3 % (0.0-4.0); HEMATOCRIT 37.8 % (39.0-51.0); HEMOGLOBIN 12.4 GM/DL (13.0-17.0); LYMPH % 10.5 % (9.0-44.0); LYMPHOCYTE # 0.8 TH/MM3 (1.0-4.8); MEAN CELL VOLUME 85.1 FL (80.0-100.0); MEAN CORPUSCULAR HEMOGLOBIN 27.9 PG (27.0-34.0); MEAN CORPUSCULAR HGB CONC 32.8 % (32.0-36.0); MEAN PLATELET VOLUME 7.1 FL (7.0-11.0); MONO % 7.6 % (0.0-8.0); MONOCYTE # 0.6 TH/MM3 (0-0.9); NEUT % 78.6 % (16.0-70.0); PLATELET COUNT 363 TH/MM3 (150-450); RED BLOOD COUNT 4.44 MIL/MM3 (4.50-5.90); RED CELL DISTRIBUTION WIDTH 14.1 % (11.6-17.2)
[2017-07-13 13:38] LABS: CHLORIDE 106 MEQ/L (98-107); SODIUM (NA) 132 MEQ/L (136-145)
[2017-07-13 13:43] LABS: ALBUMIN 2.4 GM/DL (3.4-5.0); CALCIUM 8.1 MG/DL (8.5-10.1)
[2017-07-13 13:44] VITALS: O2SAT 98
[2017-07-13 13:44] LABS: BICARBONATE 19.7 MEQ/L (21.0-32.0); BLOOD UREA NITROGEN 11 MG/DL (7-18); GLUCOSE,RANDOM 107 MG/DL (74-106)
[2017-07-13 13:46] LABS: ALT (GPT) 19 U/L (12-78); AST (GOT) 27 U/L (15-37); GLOMERULAR FILTRATION RATE 53 ML/MIN (>89)
[2017-07-13 13:47] LABS: TOTAL BILIRUBIN ADULT 0.6 MG/DL (0.2-1.0)
[2017-07-13 13:49] LABS: ALKALINE PHOSPHATASE 74 U/L (45-117); TROPONIN I LESS THAN 0.02 NG/ML (0.02-0.05)
[2017-07-13] MEDS ORDERED: IOHEXOL 350 MG/ML 10 ML VIAL (for RAD DIAG) IVCONTRAST ONE (14:26)
--- NOTE | 2017-07-13 14:31 | RADRPT ---
EXAM DATE/TIME: 07/13/2017 14:08 [facility] COMPARISON: No previous studies available for comparison. INDICATIONS : Trauma. Multiple falls. Dizziness, general weakness and right side pain. IV CONTRAST: 85 cc Omnipaque 350 (iohexol) IV ; Cumulative dose for multiple exams. RADIATION DOSE: 16.75 CTDIvol (mGy) ; Combined studies - Thorax/Abdomen/Pelvis MEDICAL HISTORY : Carcinoma, prostate. Cerebrovascular disease. Gastroesophageal reflux disease.Hypertension. Dementi a. SURGICAL HISTORY : None. ENCOUNTER: Initial ACUITY: 1 day PAIN SCALE: 0/10 LOCATION: Right chest TECHNIQUE: Volumetric scanning of the chest was performed. Using automated exposure control and adjustment of t he mA and/or kV according to patient size, radiation dose was kept as low as reasonably achievable to obtain optimal diagnostic quality images. DICOM format image data is available electronically for review and comparison. Follow-up recommendations for detected pulmonary nodules are based at a minimum on nodule size and pa tient risk factors according to Fleischner Society Guidelines. FINDINGS: LUNGS: There is no consolidation or pneumothorax. No concerning pulmonary nodule is visualized. PLEURA: There is no pleural thickening or pleural effusion. MEDIASTINUM: The heart and great vessels demonstrate no acute abnormality. There is no mediastinal or hilar lymph adenopathy. AXILLAE: Within normal limits. No lymphadenopathy. SKELETAL: Within normal limits for patient age. MISCELLANEOUS: The visualized upper abdominal organs demonstrate no acute abnormality. CONCLUSION: Normal examination. Jasper Tavarez MD on July 13, 2017 at 14:28 Board Certified Radiologist. This report was verified electronically.
--- NOTE | 2017-07-13 14:35 | RADRPT ---
EXAM DATE/TIME: 07/13/2017 14:08 [facility] COMPARISON: No previous studies available for comparison. INDICATIONS : Trauma. Multiple falls. Dizziness, general weakness and right side pain. IV CONTRAST: 85 cc Omnipaque 350 (iohexol) IV ; Cumulative dose for multiple exams. ORAL CONTRAST: No oral contrast ingested. RADIATION DOSE: 16.75 CTDIvol (mGy) ; Combined studies - Thorax/Abdomen/Pelvis MEDICAL HISTORY : Cerebrovascular disease. Carcinoma, prostate. Gastroesophageal reflux disease.Hypertension. Dementia . SURGICAL HISTORY : None. ENCOUNTER: Initial ACUITY: 1 day PAIN SCALE: 7/10 LOCATION: Right abdomen. TECHNIQUE: Volumetric scanning of the abdomen and pelvis was performed. Using automated exposure control and ad justment of the mA and/or kV according to patient size, radiation dose was kept as low as reasonably achievable to obtain optimal diagnostic quality images. DICOM format image data is available electro nically for review and comparison. FINDINGS: LOWER LUNGS: The visualized lower lungs are clear. LIVER: Homogeneous density without lesion other than a 1 cm cyst in the anterior dome. There is no dilation of the biliary tree. No calcified gallstones. SPLEEN: Normal size without lesion. PANCREAS: Within normal limits. KIDNEYS: There multiple cysts bilaterally left greater than right. The renal collecting systems are dilated. I don't see any calcifications in the ureters.. ADRENAL GLANDS: Within normal limits. VASCULAR: There is no aortic aneurysm. BOWEL/MESENTERY: The stomach, small bowel, and colon demonstrate no acute abnormality. There is no free intraperitone al air or fluid. ABDOMINAL WALL: Within normal limits. RETROPERITONEUM: There is no lymphadenopathy. BLADDER: Bladder wall is diffusely thickened without focal mass. REPRODUCTIVE: Within normal limits. INGUINAL: There is no lymphadenopathy or hernia. MUSCULOSKELETAL: Within normal limits for patient age. CONCLUSION: Multiple bilateral renal cysts. Dilated renal collecting systems with a diffusely thick walled bladde r. No evidence of stone or soft tissue mass. Jasper Tavarez MD on July 13, 2017 at 14:29 Board Certified Radiologist. This report was verified electronically.
--- NOTE | 2017-07-13 14:37 | RADRPT ---
EXAM DATE/TIME: 07/13/2017 14:00 [facility] COMPARISON: CTA BRAIN W 3D RECON, November 20, 2016, 13:23. CT BRAIN W/O CONTRAST, November 20, 2016, 12:46. CT BRAIN W/O CONTRAST, November 29, 2016, 18:33. CT BRAIN W/O CONTRAST, December 06, 2016, 9:58. INDICATIONS : Trauma. Multiple falls. Dizziness, general weakness and right side pain. RADIATION DOSE: 66.07 CTDIvol (mGy) MEDICAL HISTORY : Cerebrovascular disease. Gastroesophageal reflux disease. Carcinoma, prostate.Dementia. Hypertension . SURGICAL HISTORY : None. ENCOUNTER: Initial ACUITY: 1 day PAIN SCALE: 0/10 LOCATION: cranial TECHNIQUE: Multiple contiguous axial images were obtained of the head. Using automated exposure control and adj ustment of the mA and/or kV according to patient size, radiation dose was kept as low as reasonably a chievable to obtain optimal diagnostic quality images. DICOM format image data is available electro nically for review and comparison. FINDINGS: CEREBRUM: Mild central cerebral atrophy is noted. The configuration of the ventricles suggests probable agenes is of the corpus callosum. No evidence of midline shift, mass lesion, hemorrhage or acute infarction. No extra-axial fluid collections are seen. POSTERIOR FOSSA: Old infarcts are noted involving the cerebellar hemispheres. The brainstem is intact. The 4th ventri brodie is midline. The cerebellopontine angle is unremarkable. EXTRACRANIAL: The visualized portion of the orbits is intact. SKULL: The calvaria is intact. No evidence of skull fracture. CONCLUSION: 1. No acute infarct, acute hemorrhage, midline shift or extra-axial bleed. 2. Mild central cerebral atrophy. 3. Old infarcts involving the cerebellar hemispheres. 4. 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 Kimo Cruz MD on July 13, 2017 at 14:27 Board Certified Radiologist. This report was verified electronically.
--- NOTE | 2017-07-13 15:06 | RADRPT ---
EXAM DATE/TIME: 07/13/2017 14:00 [facility] COMPARISON: No previous studies available for comparison. INDICATIONS : Trauma. Multiple falls. Dizziness, general weakness and right side pain. RADIATION DOSE: 26.51 CTDIvol (mGy) MEDICAL HISTORY : Gastroesophageal reflux disease. Carcinoma, prostate. Cerebrovascular disease.Hypertension. Dementia . SURGICAL HISTORY : None. ENCOUNTER: Initial ACUITY: 1 day PAIN SCALE: 0/10 LOCATION: neck TECHNIQUE: Volumetric scanning of the cervical spine was performed. Multiplanar reconstructions in the sagittal, coronal and oblique axial planes were performed. Using automated exposure control and adjustment o f the mA and/or kV according to patient size, radiation dose was kept as low as reasonably achievable to obtain optimal diagnostic quality images. DICOM format image data is available electronically f or review and comparison. FINDINGS: There is straightening of the normal cervical lordosis. Cervical spondylosis is noted at C4-5, C5-6 a nd C6-7 and to a lesser extent at C7-T1. Moderate right neural foraminal narrowing is noted at C4-5 a nd C5-6. Mild left neural foraminal narrowing is noted at C6-7. Mild spinal stenosis is noted at C4-5 and C5-6. The bone relationship and alignment between C1 and C2 is well maintained. No acute fractur e or prevertebral soft tissue swelling is noted. CONCLUSION: 1. No acute fracture or prevertebral soft tissue swelling. 2. Mild spinal stenosis at C4-5 and C5-6. 3. Moderate right neural foraminal narrowing at C4-5 and C5-6 and mild left neural foraminal narrowin g at C6-7. 4. Straightening of normal cervical lordosis. 5. Cervical spondylosis at C4-5, C5-6 and C6-7 and to a lesser extent at C7-T1. Kimo Cruz MD on July 13, 2017 at 14:54 Board Certified Radiologist. This report was verified electronically.
[2017-07-13 16:37] VITALS: BP 144/66
[2017-07-13 16:41] LABS: BILIRUBIN, URINE NEG (NEG); BLOOD, URINE MOD (NEG); GLUCOSE,URINE NEG (NEG); KETONE, URINE NEG (NEG); NITRITE,URINE POS (NEG); PH, URINE 6.5 (5.0-8.5); URINE COLOR YELLOW (YELLW/STRAW); URINE LEUKOCYTE ESTERASE MOD (NEG)
[2017-07-13 16:47] LABS: WBC, URINE INNUM /hpf (0-5); WHITE BLOOD CELL CLUMPS MOD
[2017-07-13 16:48] LABS: SQUAMOUS EPITHELIAL CELL URINE 0-5 /hpf (0-5)
--- NOTE | 2017-07-14 13:50 | EKG ---
Date Performed: 07/13/2017 Time Performed: 13:09:03 PTAGE: 82 years EKG: SINUS BRADYCARDIA WITH FIRST DEGREE AV BLOCK INFERIOR MYOCARDIAL INFARCTION ABNORMAL ECG PREVIOUS TRACING : 11/20/2016 12.56 Since the previous tracing, no significant change noted DOCTOR: Manolo Nguyen Interpretating Date/Time 07/14/2017 13:46:53
== END 2017-07-13 16:44 | disposition home or self-care (01) ==
LOC: PHED 12:30
DX: S20.211A Contusion of right front wall of thorax, initial encounter (principal); N39.0 Urinary tract infection, site not specified; B96.20 Unspecified Escherichia coli [E. coli] as the cause of diseases classified elsewhere; R00.1 Bradycardia, unspecified; I44.0 Atrioventricular block, first degree; Q61.02 Congenital multiple renal cysts; M48.02 Spinal stenosis, cervical region; M47.9 Spondylosis, unspecified; W18.30XA Fall on same level, unspecified, initial encounter
CPT/HCPCS: 70450; 71260; 72125; 74177; 80053; 81001; 82550; 84484; 85025; 87077; 87086; 87186; 93005; 99285; Q9967